=== PATIENT | female | born 1955 | race Caucasian/White ===

== ENCOUNTER 2017-10-27 21:42 | Inpatient (IN) | payer OTHER ==
[~2017-10-27] VITALS: Ht 165.1 cm; Wt 74.0 kg
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
--- NOTE | ~2017-10-27 | CON ---
[place], [place] REPORT OF CONSULTATION NAME: NICHOLAS BURDICK UNIT #: [id number] ROOM: [facility] DOCTOR: MICHELET CHAPARRO MD BIRTHDATE: [birth year] DOS: 10/29/2017 PSYCHIATRIC CONSULTATION CHIEF COMPLAINT: "Oh, I will never do that again." HISTORY OF PRESENT ILLNESS: This is a 62-year-old white female who was admitted to ICU following an intentional drug overdose on Valium. The patient reports ongoing family discord and states that her entire family is extremely dysfunctional. She moved from the [facility] to [place], in order to get away from them. Unfortunately, some of the drama followed her per her report, causing her to become increasingly depressed and agitated. She impulsively took the Valium not realizing how serious of an overdose it would be, now that she has been extubated and has had a chance to think about it, she convincingly has denied suicidal thoughts. She reports that her plan is to move with her daughter out of the entire area. She does have a very good relationship with José Luis Victor, a counselor at the [facility]. Kendra Mcconnellpton has already been in this morning to reevaluate and has told nurses that she does not feel that the patient is actively suicidal. This morning with me, she expresses reasonable remorse for her actions and does voice positive plans for the future. She is glad that she did not hurt herself any further than what she did, is anxious to leave the hospital and move her belongings far out of this area, so that she can avoid family discord. She reports good sleep and appetite leading up to this event and denied any neurovegetative symptoms prior to her impulsive suicide attempt. The patient denies any homicidal thoughts, any self-injurious thoughts. There is no gross psychosis and no robert present. IMPRESSION: Major depression, recurrent and borderline personality disorder. My sense after talking to her this morning is that she is not actively lethal. This was an impulsive act more because of personality issues than a major depressive episode. I am comfortable with her being discharged today. She does have followup already set with José Luis Victor at the [facility]. MICHELET CHAPARRO MD CM:CONSTR:REPORT OF CONSULTATION 1033 11/06/17 0928 interface
--- NOTE | ~2017-10-27 | PR ---
[place], [place] PROGRESS NOTE NAME: NICHOLAS BURDICK UNIT #: [id number] ROOM: [facility] DOCTOR: NADEEM VARELA MD,DYLAN BIRTHDATE: [birth year] DOS: 10/29/2017 PULMONARY PROGRESS NOTE SUBJECTIVE: The patient remains liberated from mechanical ventilator, noted fully awake, alert, oriented. This morning at the time of the assessment, she did not report any symptoms of coughing, sputum expectoration, or any chest pain. Denies symptoms of hemoptysis. OBJECTIVE: VITAL SIGNS: Normal temperature, respiratory rate 20, heart rate 74, blood pressure 111/46. Pulse oxygen saturation noted on room air 96% saturation. HEENT: Head was atraumatic. Eyes nonicterus. NECK: Supple. CARDIOVASCULAR: S1, S2 is audible. LUNGS: Without any wheeze or crackles this morning. ABDOMEN: Soft, nontender. Bowel sounds present. EXTREMITIES: Without any acute edema. IMPRESSION: 1. The patient is with stable respiratory status noted at the present time, with acute respiratory failure related to drug overdose with Valium. 2. History of chronic nicotine abuse. PLAN OF TREATMENT: No changes in the plan of management at this time. Continue current replacement patches, bronchodilators, DVT prophylaxis, and other. The patient has been assessed by the psychiatrist, Dr. Almanzar today for further recommendations. DYLAN SILVER MD CM:PNTRANS 1136 [id number] DYLAN VARELA MD 10/29/17 1337 interface
[~2017-10-27 21:42] MED LIST: 'carisoprodol350 MG; ABILIFY5 MG; ALAVERT10 M1 PO; ALLERGY RELIEF10 M1 PO; AMOXICILLIN500 MG PO; AUGMENTIN 875 M1 TAB PO; BACLOFEN10 MG PO; BACTRIM DS 8001 TA1 PO; CALAN SR240 MG PO; CIPRO500 MG PO; CLEOCIN HCL150 MG PO; CLINDAMYCIN HC300 MG PO; CYMBALTA60 M1 PO; DAILY MULTI-VIT1 TA2 PO; DIAZEPAM2 MG PO; HYDROCODONE BIT1 T11 PO; IMITREX6 MG/0.51 SC; LANSOPRAZOLE30 MG; LEVAQUIN750 MG PO; LIORESAL10 MG PO; LOMOTIL 0.025 M1 TA1 PO; LORATADINE10 M1; MEDROL DOSEPAK4 MG PO; MOTRIN400 MG PO; MULTIPLE VITAMI1 T16 PO; NEURONTIN100 MG PO; NKHM; OXYCODONE W/APA1 TAB; PERCOCET 325 MG1 TA2 PO; PERCOCET 325 MG1 TAB PO; PRILOSEC20 MG PO; PROAIR HFA0.09 MG/AC INH; SUMATRIPTA6 MG/0.51 SC; SYMBICORT1 AE1 INH; TIGAN PO; TRIMETHOBENZAM300 MG; ULTRAM50 MG PO; VALIUM10 MG PO; VICODIN ES 7501 TAB PO; ZITHROMAX Z PA250 MG PO; ZOFRAN ODT4 MG SL; ZOFRAN8 MG PO; ZOLOFT50 MG PO; ZYPREXA7.5 MG PO
[2017-10-27 22:04] VITALS: BP 160/85
[2017-10-27 22:05] LABS: BASO # 0.1 10*3/uL (0.0-0.1); BASO % 0.7 % (0.0-1.0); EOS # 0.2 10*3/uL (0.0-0.4); EOS % 2.8 % (1.0-4.0); HEMATOCRIT 45.2 % (37.0-47.0); HEMOGLOBIN 14.2 g/dl (12.0-16.0); LYMPH # 2.6 10*3/uL (1.3-4.4); LYMPH % 35.2 % (27.0-41.0); MEAN CELL VOLUME 87.8 fl (81.0-99.0); MEAN CORPUSCULAR HGB 27.6 pg (27.0-31.0); MEAN CORPUSCULAR HGB CONC 31.4 g/dl (33.0-37.0); MEAN PLATELET VOLUME 11.6 fl (9.6-12.3); MONO # 0.6 10*3/uL (0.1-1.0); MONO % 7.7 % (3.0-9.0); NEUT # 3.9 10*3/uL (2.3-7.9); NEUT % 53.2 % (47.0-73.0); PLATELET COUNT AUTOMATED 180 10*3/uL (130-400); RED BLOOD COUNT 5.15 10*6/uL (4.10-5.10); RED CELL DISTRI WIDTH 13.7 % (0-14.5); WHITE BLOOD COUNT 7.4 10*3/uL (4.8-10.8)
[2017-10-27 22:44] LABS: ALBUMIN 3.4 gm/dl (3.1-4.5); ALKALINE PHOSPHATASE 87 U/L (45-117); BUN 5 mg/dl (7-24); CHLORIDE 108 mmol/L (98-107); CPK 26 U/L (26-192); CREATININE 0.56 mg/dL (0.55-1.02); POTASSIUM 3.3 mmol/L (3.5-5.1); SGOT/AST 39 IU/L (3-35); SGPT/ALT 35 U/L (12-78); SODIUM 137 mmol/L (136-145); TOTAL PROTEIN 7.2 gm/dL (6.4-8.2)
[2017-10-27 22:45] LABS: ACETAMINOPHEN (TYLENOL) < 2.0 ug/ml (10-30); CKMB 0.9 ng/ml (0.5-3.6); ETHYL ALCOHOL < 3.0 mg/dl (<3)
[2017-10-27 22:46] LABS: TROPONIN I < 0.015 ng/ml (<0.045)
[2017-10-27 23:18] VITALS: BP 158/71
[2017-10-28] VITALS (7 sets, daily range): BP systolic 111–138; BP diastolic 65–83
[2017-10-28 01:56] LABS: BILIRUBIN NEGATIVE (NEGATIVE); BLOOD NEGATIVE (NEGATIVE); CLARITY CLEAR (CLEAR); COLOR YELLOW (YELLOW); GLUCOSE NEGATIVE (NEGATIVE); KETONE NEGATIVE (NEGATIVE); LEUKO ESTERASE TRACE (NEGATIVE); NITRITE NEGATIVE (NEGATIVE); PH 5.5 (5.0-9.0); SPECIFIC GRAVITY <= 1.005 (1.005-1.030); UROBILINOGEN 0.2 E.U./dl (0.2-1.0)
[2017-10-28 02:05] LABS: URINE AMPHETAMINES < 1000 (1000ng/ml); URINE BARBITURATES < 200 (200ng/ml); URINE BENZODIAZEPINES > 200 (200ng/ml); URINE CANNABINOIDS (THC) < 50 (50ng/ml); URINE COCAINE < 300 (300ng/ml); URINE METHADONE < 300 (300ng/ml); URINE OPIATES < 300 (300ng/ml); URINE PHENCYCLIDINE < 25 (25ng/ml)
[2017-10-28 02:13] LABS: ABG BASE EXCESS -0.3 mmol/L (-2.0-2.0); ABG O2 SATURATION 97.8 % (95-97); ARTERIAL BLOOD GAS PCO2 49.8 mmHg (35-45); ARTERIAL BLOOD GAS PH 7.333 (7.35-7.45)
[2017-10-28 06:08] LABS: BASO % 0.5 % (0.0-1.0); EOS # 0.1 10*3/uL (0.0-0.4); EOS % 1.3 % (1.0-4.0); HEMATOCRIT 46.7 % (37.0-47.0); HEMOGLOBIN 14.2 g/dl (12.0-16.0); LYMPH % 25.8 % (27.0-41.0); MEAN CELL VOLUME 89.1 fl (81.0-99.0); MEAN CORPUSCULAR HGB 27.1 pg (27.0-31.0); MEAN CORPUSCULAR HGB CONC 30.4 g/dl (33.0-37.0); MEAN PLATELET VOLUME 12.7 fl (9.6-12.3); MONO # 0.6 10*3/uL (0.1-1.0); MONO % 7.5 % (3.0-9.0); NEUT # 4.9 10*3/uL (2.3-7.9); NEUT % 64.5 % (47.0-73.0); PLATELET COUNT AUTOMATED 163 10*3/uL (130-400); RED BLOOD COUNT 5.24 10*6/uL (4.10-5.10); RED CELL DISTRI WIDTH 13.6 % (0-14.5); WHITE BLOOD COUNT 7.6 10*3/uL (4.8-10.8)
[2017-10-28 06:29] LABS: ACT PARTIAL THROMBO TIME 23.8 SECONDS (20.8-31.5)
[2017-10-28 06:31] LABS: ALBUMIN 3.4 gm/dl (3.1-4.5); BUN 6 mg/dl (7-24); CHLORIDE 110 mmol/L (98-107); POTASSIUM 4.1 mmol/L (3.5-5.1); SGOT/AST 32 IU/L (3-35); SODIUM 145 mmol/L (136-145)
[2017-10-28 06:39] LABS: ALKALINE PHOSPHATASE 86 U/L (45-117); CHOLESTEROL 52 mg/dL (<200); CREATININE 0.57 mg/dL (0.55-1.02); FREE T4 1.26 ng/dl (0.76-1.46); HDL CHOLESTEROL 11 mg/dl (40-60); LDL CHOLESTEROL 17 mg/dL (9-159); PHOSPHOROUS 3.1 mg/dL (2.5-4.9); SGPT/ALT 35 U/L (12-78); THYROID STIM HORMONE (HS) 0.733 uIU/ml (0.358-4.75); TOTAL PROTEIN 7.3 gm/dL (6.4-8.2); TRIGLYCERIDES 122 mg/dl (<150); VLDL CHOLESTEROL 24 mg/dL (6-40)
[2017-10-28 07:37] LABS: VITAMIN D, 25-HYDROXY 22.8 ng/mL (30-100)
[2017-10-28 09:35] LABS: ABG BASE EXCESS 1.1 mmol/L (-2.0-2.0); ABG HCO3 25.8 mmol/l (22-26); ABG O2 SATURATION 97.2 % (95-97); ARTERIAL BLOOD GAS PCO2 41.2 mmHg (35-45); ARTERIAL BLOOD GAS PH 7.407 (7.35-7.45)
[2017-10-28] MEDS ORDERED: ANORO ELLIPTA1 EACH INH (11:23)
[2017-10-28] MEDS ORDERED: VALIUM10 MG PO (11:23)
[2017-10-28] MEDS ORDERED: ZOLOFT100 MG PO (11:24)
[2017-10-28] MEDS ORDERED: LAMICTAL100 MG PO (11:25)
[2017-10-28] MEDS ORDERED: NEURONTIN300 MG PO (11:33)
[2017-10-28] MEDS ORDERED: KEPPRA250 MG PO (11:33)
[2017-10-28] MEDS ORDERED: VERAPAMIL HCL240 MG PO (11:34)
[2017-10-28] MEDS ORDERED: ZYRTEC10 MG PO (11:36)
[2017-10-28] MEDS ORDERED: PRILOSEC20 M1 PO (11:36)
[2017-10-29] VITALS: BP 106/61
[2017-10-29 04:00] VITALS: BP 110/56
[2017-10-29 06:03] LABS: ALBUMIN 2.9 gm/dl (3.1-4.5); ALKALINE PHOSPHATASE 83 U/L (45-117); BUN 3 mg/dl (7-24); CHLORIDE 115 mmol/L (98-107); CREATININE 0.56 mg/dL (0.55-1.02); POTASSIUM 3.7 mmol/L (3.5-5.1); SGOT/AST 24 IU/L (3-35); SGPT/ALT 28 U/L (12-78); SODIUM 147 mmol/L (136-145); TOTAL PROTEIN 6.4 gm/dL (6.4-8.2)
[2017-10-29 06:14] LABS: BASO % 0.5 % (0.0-1.0); EOS # 0.2 10*3/uL (0.0-0.4); EOS % 2.3 % (1.0-4.0); HEMATOCRIT 42.6 % (37.0-47.0); HEMOGLOBIN 12.8 g/dl (12.0-16.0); LYMPH # 1.9 10*3/uL (1.3-4.4); LYMPH % 29.1 % (27.0-41.0); MEAN CELL VOLUME 90.4 fl (81.0-99.0); MEAN CORPUSCULAR HGB 27.2 pg (27.0-31.0); MEAN PLATELET VOLUME 12.3 fl (9.6-12.3); MONO # 0.5 10*3/uL (0.1-1.0); NEUT # 3.9 10*3/uL (2.3-7.9); NEUT % 60.8 % (47.0-73.0); PLATELET COUNT AUTOMATED 157 10*3/uL (130-400); RED BLOOD COUNT 4.71 10*6/uL (4.10-5.10); RED CELL DISTRI WIDTH 13.9 % (0-14.5); WHITE BLOOD COUNT 6.5 10*3/uL (4.8-10.8)
[2017-10-29 08:00] VITALS: BP 111/46
[2017-10-29] MEDS ORDERED: VALIUM10 MG PO (12:13)
== END 2017-10-29 12:34 | disposition home or self-care (01) | DRG 917 ==
LOC: ED 21:42 → ICCU 22:22 → EDHOLD 22:22 → ICCU 22:33
PROVIDERS: Emergency Medicine; Family Medicine; Internal Medicine; Internal Medicine Critical Care Medicine
PROC: 0BH17EZ Insertion of Endotracheal Airway into Trachea, Via Natural or Artificial Opening (ICD-10-PCS; principal; 2017-10-27)
PROC: 5A1935Z Respiratory Ventilation, Less than 24 Consecutive Hours (ICD-10-PCS; 2017-10-27)
PROC: 05HY33Z Insertion of Infusion Device into Upper Vein, Percutaneous Approach (ICD-10-PCS; 2017-10-27)
DX: T42.4X2A Poisoning by benzodiazepines, intentional self-harm, initial encounter (principal); G93.41 Metabolic encephalopathy; J96.02 Acute respiratory failure with hypercapnia; F33.2 Major depressive disorder, recurrent severe without psychotic features; E87.2 Acidosis; E83.51 Hypocalcemia; R65.10 Systemic inflammatory response syndrome (SIRS) of non-infectious origin without acute organ dysfunction; J44.9 Chronic obstructive pulmonary disease, unspecified; F17.210 Nicotine dependence, cigarettes, uncomplicated; E87.6 Hypokalemia; R73.9 Hyperglycemia, unspecified; B18.2 Chronic viral hepatitis C; H65.21 Chronic serous otitis media, right ear; F60.3 Borderline personality disorder; G89.4 Chronic pain syndrome; F34.1 Dysthymic disorder; F41.9 Anxiety disorder, unspecified; K21.9 Gastro-esophageal reflux disease without esophagitis; Z90.710 Acquired absence of both cervix and uterus; Z85.43 Personal history of malignant neoplasm of ovary; Z86.11 Personal history of tuberculosis; Y92.89 Other specified places as the place of occurrence of the external cause; Z79.899 Other long term (current) drug therapy; Z80.8 Family history of malignant neoplasm of other organs or systems

== ENCOUNTER 2017-11-04 15:03 | Inpatient (IN) | payer OTHER ==
[~2017-11-04] VITALS: Ht 167.6 cm; Wt 81.6 kg
--- NOTE | ~2017-11-04 | CON ---
[place], [place] REPORT OF CONSULTATION NAME: NICHOLAS BRUNNER UNIT #: [id number] ROOM: 316 DOCTOR: RUBÉN FERRER ED.D) BIRTHDATE: [birth year] DOS: 11/06/2017 HISTORY OF PRESENT ILLNESS: Ms. Brunner is a 62-year-old female referred by Dr. Chaparro for competency evaluation. At the present time, this patient is on the [facility] at [facility]. She states she is . She does not work and is on SSI. At the present time, this patient does not have a family physician. Her medical history is pertinent for migraine headaches, history of IV heroin abuse, COPD, urinary tract infection and borderline personality disorder, hypertension and the tuberculosis. She was sent to the hospital after she overdosed on Valium at her apartment. This patient states that she smokes 2 packs of cigarettes per day, but does not drink any alcoholic beverages. She does smoke marijuana on occasion. Her medications include multivitamins, Prilosec, verapamil, ProAir, Vilanterol, Zyrtec, Neurontin, Lamictal and the Keppra. She states she has attempted suicide on several different occasions and was hospitalized in the past, but did not know the number of times she had been hospitalized. She does follow with José Luis Lakhani, nurse practitioner at [facility]. She also sees a therapist by the name of Myrna at the counseling center. She states that she will continue to follow with him once she is discharged. She was quite confused when she was admitted, but by the time I evaluated her, her confusion had cleared, most likely due to the fact that she had a resolving urinary tract infection. She states she was having difficulty urinating and had other symptoms of urinary tract infection including a positive urine screen. Regardless, she is clearly competent to make informed healthcare decisions at this time. Her confusion most likely was a short-term delirium secondary to her urinary tract infection. She has been treated by the staff at the [facility] for bipolar disorder and borderline personality disorder. DIAGNOSES: 1. Bipolar 1 disorder -- mixed. 2. Borderline personality disorder. RECOMMENDATIONS: 1. In my opinion, this patient is competent to make informed healthcare decisions. 2. The patient should follow up with the Counseling Center in [facility] when she is discharged from the hospital. Thank you very much for this consult. [place], [place] REPORT OF CONSULTATION NAME: NICHOLAS BRUNNER UNIT #: [id number] ROOM: [facility] DOCTOR: RUBÉN FERRER ED.D (CELENA) BIRTHDATE: [birth year] RUBÉN FERRER ED.D CM:CONSTR:REPORT OF CONSULTATION 1805 11/07/17 1410 interface MICHELET CHAPARRO MD
--- NOTE | ~2017-11-04 | DS ---
[place], [place] DISCHARGE SUMMARY NAME: NICHOLAS BURDICK UNIT #: [id number] ROOM: 316 DOCTOR: MICHELET CHAPARRO MD BIRTHDATE: [birth year] DOS: 11/10/2017 CHIEF COMPLAINT: "I don't remember trying to sign out, I do not remember you." HISTORY OF PRESENT ILLNESS: This is a 62-year-old white female who was recently admitted to ICU following an overdose of Valium. However, after being evaluated post-overdose by Kendra Lakhani and myself, she had come convey normal remorse and voiced positive plans for the future and wanted to be able to move out of her home and in with her daughter. Subsequently to leaving the hospital, she decompensated and was attempting to get in to [facility], but needed to be medically cleared in our Emergency Room. She did have a history of MRSA and hepatitis C. In the Emergency Room, the patient stated that she actively wanted to get help and was feeling overly depressed and overwhelmed with family drama. She endorsed multiple neurovegetative symptoms and continued to have fleeting suicidal thoughts. The option was given to her to be admitted to our psychiatric unit which she did agree to. She was admitted now to rule out organic factors to attempt to stabilize on medication, to return to the least restrictive environment. PAST MEDICAL HISTORY: Remarkable for benzodiazepine abuse, previous history of opiate abuse, COPD, chronic pain, GERD, hep C, ovarian cancer, tuberculosis, hypertension, major depression, recurrent migraine headaches and prediabetes. SOCIAL HISTORY: The patient does drink alcohol socially. She is a former IV heroin abuser. She does smoke marijuana daily and smokes 2 packs of cigarettes a day. ALLERGIES: She lists allergies to ACETAMINOPHEN. STRENGTHS: Good verbal skills and ambulatory. WEAKNESSES: Family dynamic issues, poor coping skills. SUMMARY OF THE HOSPITAL COURSE: The patient was admitted where she was started immediately on Cymbalta 30 mg at bedtime. This was augmented with Zyprexa 5 mg twice daily in order to improve the effectiveness of the Cymbalta as well as to aid sleep and curve her anxiety without utilizing an addictive agent. The Zyprexa was gradually increased to its maximum of 5 mg in the morning and 10 mg at night while Cymbalta was increased to 30 mg in the morning and 60 mg at night without any incident. Screening examination showed her to have a vitamin D level subtherapeutic at 23.6, so vitamin D 50,000 international units weekly was added. The patient continued to complain that her family dynamic issues made such that she did not want to return with any of them. She had a hard time cooking, cleaning and doing all that for herself, so it was decided that a less than 30-day rehab option was in her best interest with the possibility of this turning into a permanent placement. The patient had improved sufficiently by November 10 to return to [place] or to be admitted to [facility]. MENTAL STATUS AT DISCHARGE: She is alert and oriented with time gaps. [place], [place] DISCHARGE SUMMARY NAME: NICHOLAS BURDICK UNIT #: [id number] ROOM: [facility] DOCTOR: MICHELET CHAPARRO MD BIRTHDATE: [birth year] does seem to be trending toward euthymia. Affect is more appropriate. She no longer endorses suicidal thoughts, homicidal thoughts or any self-injurious thoughts. There is no robert, hypomania or psychosis. Memory for short term events has gaps, otherwise she is intact. FINAL DIAGNOSES: Major depression, recurrent, severe; dysthymic disorder; polysubstance dependence and borderline personality disorder. PLAN: The patient is to be admitted to [facility]. All of her prescriptions have been printed and will be sent with her. She is medically and psychiatrically stable. Her biopsychosocial needs are adequately being met by the facility at large. MICHELET CHAPARRO MD CM:DISCHARG 0912 [id number] MICHELET CHAPARRO MD 11/10/17 1800 interface
--- NOTE | ~2017-11-04 | PR ---
[place], [place] PROGRESS NOTE NAME: NICHOLAS BURDICK UNIT #: [id number] ROOM: 316 DOCTOR: MICHELET CHAPARRO MD BIRTHDATE: [birth year] DOS: 11/08/2017 INTERVAL NOTE CHIEF COMPLAINT: "I am still paranoid and I am afraid what's going to happen to me." SUMMARY OF THE VISIT: The patient was interviewed in the group therapy room. She requested to talk to me privately because she does state that she is still paranoid. She is not sleeping well. She had questions about where she will go post-discharge and we discussed at length what [facility] is like. She nodded in approval stating that that did some good to her. She also on a positive note reports that she does feel like the patch is already helping her cognition. Whether this is true or placebo effect is uncertain. MENTAL STATUS: She is alert and oriented with gaps. Mood does seem to be trending towards euthymia. Affect is more appropriate. There is no robert or hypomania. She still endorses positive hallucinations. Memory has gaps. PLAN: I will increase Zyprexa to 5 mg in the morning and 10 mg at night, attempting to aid sleep and reduce psychotic symptomatology. Engage in individual and lou milieu activity, returning to the least restrictive environment when stable. MICHELET CHAPARRO MD CM:PNTRANS 1132 08 MICHELET CHAPARRO MD 11/08/172106 interface
--- NOTE | ~2017-11-04 | WRIGHTHP ---
[place], [place] PATIENT HISTORY AND PHYSICAL EXAM NAME: NICHOLAS BURDICK UNIT #: [id number] ROOM: 316 DOCTOR: MICHELET CHAPARRO MD BIRTHDATE: [birth year] DOS: 11/05/2017 INITIAL PSYCHIATRIC EVALUATION CHIEF COMPLAINT: "I don't remember trying to sign out, I don't remember you." HISTORY OF PRESENT ILLNESS: This is a 62-year-old white female who recently overdosed on Valium and was admitted to ICU. However, after being evaluated post-overdose by Kendra Lakhani and myself, she had conveyed normal remorse and voiced positive plans for the future and wanted to be able to move in with her daughter. Subsequently, she decompensated at her daughters and was attempting to get into [facility], but needed to be cleared by our Emergency Room first due to a history of MRSA and hepatitis C. In the Emergency Room, the patient did state that she actively wanted to get help that she had been feeling overly depressed and overwhelmed because of family drama. She reported not sleeping well with difficulty falling asleep, sleep continuity disturbance, forensic specialist awakening, anergia, anhedonia, hopeless, helpless feelings, crying spells, and inability to cope. She continues to have fleeting suicidal thoughts. Of note, this morning, she also endorses the possibility of hearing voices and believes that people are talking about her. She convincingly reports that she does not remember me and even after I told her my name, she asked me if I was a doctor. There seems to be some cognitive issues here as well. She is admitted now to rule out any organic factors to stabilize on medication, to then return to the least restrictive environment. PAST MEDICAL HISTORY: Remarkable for benzodiazepine abuse, COPD, chronic pain syndrome, GERD, hep C, ovarian cancer, tuberculosis, hypertension, major depression, migraine headaches, and prediabetes. SOCIAL HISTORY: The patient socially does not drink alcohol. 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 She does smoke 2 packs of cigarettes a day and smokes marijuana frequently. ALLERGIES: She lists allergies to ACETAMINOPHEN. She denies any previous psychiatric hospitalizations and denies any previous suicide attempts, other than the recent one. STRENGTHS: Good verbal skills, ambulatory. WEAKNESSES: Significant family dynamic issues, poor coping skills. MENTAL STATUS: She is alert and oriented with time gaps. Mood is overwhelmingly depressed. Affect is flat, blunted with a constricted range. She endorses multiple neurovegetative symptoms including fleeting suicidal thoughts. She also endorses ideas of reference and feels people are talking about her. She does have short term memory issues as well. DIAGNOSES: Major depression, recurrent, severe; dysthymic disorder; polysubstance dependence; and borderline personality disorder. [place], [place] PATIENT HISTORY AND PHYSICAL EXAM NAME: NICHOLAS BURDCIK UNIT #: [id number] ROOM: [facility] DOCTOR: MICHELET CHAPARRO MD BIRTHDATE: [birth year] PLAN: I have already started her on Cymbalta 30 mg at bedtime, which I will increase now to 60 mg at bedtime. I will augment with Zyprexa 5 mg twice daily, not only to make the antidepressant work better, but also to combat the paranoid delusions. I will check a Neurontin level in the a.m. to make certain it is therapeutic. Screening exam show her vitamin D level to be subtherapeutic at 23.6, so I will add vitamin D 50,000 international units weekly. We will engage in individual and lou milieu activity, then determining when psychiatrically stable at the least restrictive environment to discharge to. MICHELET CHAPARRO MD CM:HISPHYS:PATIENT HISTORY AND PHYSICAL EXAMINATION [id number] MICHELET CHAPARRO MD 11/05/17 1128 interface
--- NOTE | ~2017-11-04 | PR ---
[place], [place] PROGRESS NOTE NAME: NICHOLAS BURDICK UNIT #: [id number] ROOM: 316 DOCTOR: MICHELET CHAPARRO MD BIRTHDATE: [birth year] DOS: 11/07/2017 CHIEF COMPLAINT: "I think that little patch, they put on is already helping me." SUMMARY OF THE VISIT: The patient was interviewed in the dining area, she sat to eat her breakfast, but engaged instead in conversation with us. She reports that she is feeling better. She does seem to be more goal directed in her conversation than she had been over the weekend and was able to converse more readily, even being somewhat spontaneous in bringing up topics. She is hopeful that she can live here and states that her brother is working on finding her a living situation, where she will not have to be totally alone. food and nutrition services assistant reports that he is looking into a personal chcf and/or group homes or assisted living. MENTAL STATUS: She is alert and oriented with time gaps. She is somewhat fragmented in her thinking, but better than she had been several days ago. She does also appear to be more euthymic and her mood does seem to be improving. I see no hypomania or robert. Likewise, I see no gross psychotic symptoms. Memory for short term events continues to be problematic. Otherwise, she is intact. PLAN: I will go ahead and increase Exelon patch from 4.6 to 9.5 mg a day. Continue to support and monitor, engage in individual and lou milieu activity with the plan to discharge then when psychiatrically stable. MICHELET CHAPARRO MD CM:PNTRANS [id number] MICHELET CHAPARRO MD 11/07/17 0923 interface
--- NOTE | ~2017-11-04 | PN ---
[place], [place] PROGRESS NOTE NAME: NICHOLAS BURDICK UNIT #: [id number] ROOM: 316 DOCTOR: MICHELET CHAPARRO MD BIRTHDATE: [birth year] DATE: 11/09/17 ADDENDUM 11/16/17 2:06 P.M.: Above note reviewed. Agree with observations, recommendations, and overall treatment plan. MICHELET CHAPARRO MD CM:PNTRANS 1406 1413 MICHELET CHAPARRO MD 11/16/17 1413 DEANA QUIROZ MIS.LLR
--- NOTE | ~2017-11-04 | PR ---
[place], [place] PROGRESS NOTE NAME: NICHOLAS BURDICK UNIT #: [id number] ROOM: 316 DOCTOR: MICHELET CHAPARRO MD BIRTHDATE: [birth year] DOS: 11/06/2017 INTERVAL NOTE CHIEF COMPLAINT: "Who are you again." SUMMARY OF THE VISIT: The patient was interviewed in the dining area. She continues to be very perplexed and bewildered and did not remember my name or who I was. She did not even know that I was her doctor. She remains depressed. She remains rather flat and blunted and reports that she is in considerable pain. She also discussed at length her family dynamic issues, which are very problematic. MENTAL STATUS: She is alert and oriented to person, possibly place, not time. Mood does seem to be still rather depressed. Affect is flat, blunted, and constricted. There is no robert or hypomania. There is no gross psychosis. Short term memory remains poor. PLAN: I will increase her Cymbalta to 30 mg in the morning and 60 mg at bedtime and add Exelon patch to try to improve her cognitive status. We will continue to engage in individual and lou milieu activities, returning to the least restrictive environment when psychiatrically stable. MICHELET CHAPARRO MD CM:PNTRANS 0925 35 MICHELET CHAPARRO MD 11/06/171934 interface
[~2017-11-04 15:03] MED LIST changes: +ANORO ELLIPTA1 EACH INH; +KEPPRA250 MG PO; +LAMICTAL100 MG PO; +NEURONTIN300 MG PO; +PRILOSEC20 M1 PO; +VERAPAMIL HCL240 MG PO; +ZOLOFT100 MG PO; +ZYRTEC10 MG PO
[2017-11-04 15:09] VITALS: BP 146/73
[2017-11-04 16:03] LABS: BASO % 0.5 % (0.0-1.0); EOS # 0.2 10*3/uL (0.0-0.4); EOS % 2.1 % (1.0-4.0); HEMATOCRIT 47.6 % (37.0-47.0); HEMOGLOBIN 15.1 g/dl (12.0-16.0); LYMPH # 2.1 10*3/uL (1.3-4.4); LYMPH % 27.7 % (27.0-41.0); MEAN CELL VOLUME 87.2 fl (81.0-99.0); MEAN CORPUSCULAR HGB 27.7 pg (27.0-31.0); MEAN CORPUSCULAR HGB CONC 31.7 g/dl (33.0-37.0); MEAN PLATELET VOLUME 10.6 fl (9.6-12.3); MONO # 0.5 10*3/uL (0.1-1.0); MONO % 7.2 % (3.0-9.0); NEUT # 4.6 10*3/uL (2.3-7.9); NEUT % 62.1 % (47.0-73.0); PLATELET COUNT AUTOMATED 199 10*3/uL (130-400); RED BLOOD COUNT 5.46 10*6/uL (4.10-5.10); RED CELL DISTRI WIDTH 13.9 % (0-14.5); WHITE BLOOD COUNT 7.5 10*3/uL (4.8-10.8)
[2017-11-04 16:04] LABS: BILIRUBIN NEGATIVE (NEGATIVE); BLOOD TRACE-INTACT (NEGATIVE); CLARITY SL CLOUDY (CLEAR); COLOR YELLOW (YELLOW); GLUCOSE NEGATIVE (NEGATIVE); KETONE NEGATIVE (NEGATIVE); NITRITE POSITIVE (NEGATIVE)
[2017-11-04 16:07] LABS: LEUKO ESTERASE 3+ (NEGATIVE)
[2017-11-04 16:09] LABS: URINE AMPHETAMINES < 1000 (1000ng/ml); URINE BARBITURATES < 200 (200ng/ml); URINE BENZODIAZEPINES > 200 (200ng/ml); URINE CANNABINOIDS (THC) > 50 (50ng/ml); URINE COCAINE < 300 (300ng/ml); URINE METHADONE < 300 (300ng/ml); URINE OPIATES < 300 (300ng/ml)
[2017-11-04 16:10] LABS: URINE PHENCYCLIDINE < 25 (25ng/ml)
[2017-11-04 16:12] LABS: BACTERIA 4+
[2017-11-04 16:13] LABS: EPITHELIAL CELLS 21-30
[2017-11-04 16:17] LABS: ACETAMINOPHEN (TYLENOL) < 2.0 ug/ml (10-30); ALKALINE PHOSPHATASE 101 U/L (45-117); BUN 6 mg/dl (7-24); CHLORIDE 108 mmol/L (98-107); CREATININE 0.69 mg/dL (0.55-1.02); ETHYL ALCOHOL < 3.0 mg/dl (<3); SGOT/AST 50 IU/L (3-35); SGPT/ALT 39 U/L (12-78); SODIUM 144 mmol/L (136-145); TOTAL PROTEIN 8.3 gm/dL (6.4-8.2)
[2017-11-04 18:00] VITALS: BP 128/78
[2017-11-04 19:51] VITALS: BP 149/72
[2017-11-04 22:00] VITALS: BP 111/75
[2017-11-05 05:58] LABS: ALBUMIN 3.4 gm/dl (3.1-4.5); ALKALINE PHOSPHATASE 94 U/L (45-117); BUN 9 mg/dl (7-24); CHLORIDE 108 mmol/L (98-107); CREATININE 0.56 mg/dL (0.55-1.02); HDL CHOLESTEROL 12 mg/dl (40-60); POTASSIUM 3.7 mmol/L (3.5-5.1); SGOT/AST 44 IU/L (3-35); SGPT/ALT 36 U/L (12-78); SODIUM 143 mmol/L (136-145); TOTAL PROTEIN 7.2 gm/dL (6.4-8.2); TRIGLYCERIDES 127 mg/dl (<150); VLDL CHOLESTEROL 25 mg/dL (6-40)
[2017-11-05 06:01] LABS: CHOLESTEROL < 50 mg/dL (<200); LDL CHOLESTEROL 13 mg/dL (9-159)
[2017-11-05 06:06] LABS: THYROID STIM HORMONE (HS) 0.809 uIU/ml (0.358-4.75)
[2017-11-05 07:22] LABS: VITAMIN D, 25-HYDROXY 23.6 ng/mL (30-100)
[2017-11-05 07:31] VITALS: BP 126/70
[2017-11-05 19:12] VITALS: BP 110/67
[2017-11-06 08:00] VITALS: BP 113/58
[2017-11-06 19:46] VITALS: BP 112/64
[2017-11-07 07:36] VITALS: BP 115/62
[2017-11-07 17:09] LABS: NEURONTIN (GABAPENTIN) 10.8 ug/mL (4.0-16.0)
[2017-11-07 20:09] VITALS: BP 125/64
[2017-11-08 07:40] VITALS: BP 133/71
[2017-11-08 19:07] VITALS: BP 125/79
[2017-11-09 07:54] VITALS: BP 117/72
[2017-11-09 19:38] VITALS: BP 131/61
[2017-11-10 07:45] VITALS: BP 117/64
[2017-11-10] MEDS ORDERED: DULOXETINE HCL60 MG PO (09:05)
[2017-11-10] MEDS ORDERED: Vitamin D PO (09:05)
[2017-11-10] MEDS ORDERED: RIVASTIGMINE1 EAC1 T (09:05)
[2017-11-10] MEDS ORDERED: OLANZAPINE5 MG PO (09:05)
[2017-11-10] MEDS ORDERED: OLANZAPINE10 MG PO (09:05)
[2017-11-10] MEDS ORDERED: DULOXETINE HCL30 MG PO (09:05)
== END 2017-11-10 15:37 | disposition other institution (70) | DRG 885 ==
LOC: ED 15:03 → 3N 20:30
PROVIDERS: Emergency Medicine; Psychiatry & Neurology Psychiatry
DX: F31.4 Bipolar disorder, current episode depressed, severe, without psychotic features (principal); E87.8 Other disorders of electrolyte and fluid balance, not elsewhere classified; R45.851 Suicidal ideations; F19.20 Other psychoactive substance dependence, uncomplicated; N39.0 Urinary tract infection, site not specified; R56.9 Unspecified convulsions; F34.1 Dysthymic disorder; F60.3 Borderline personality disorder; F12.10 Cannabis abuse, uncomplicated; R73.9 Hyperglycemia, unspecified; R74.0 Nonspecific elevation of levels of transaminase and lactic acid dehydrogenase [LDH]; Z71.6 Tobacco abuse counseling; B19.20 Unspecified viral hepatitis C without hepatic coma; G43.909 Migraine, unspecified, not intractable, without status migrainosus; Z72.0 Tobacco use; K21.9 Gastro-esophageal reflux disease without esophagitis; G89.4 Chronic pain syndrome; I10 Essential (primary) hypertension; J44.9 Chronic obstructive pulmonary disease, unspecified; F41.9 Anxiety disorder, unspecified; R73.03 Prediabetes; B18.2 Chronic viral hepatitis C; F13.10 Sedative, hypnotic or anxiolytic abuse, uncomplicated; G62.9 Polyneuropathy, unspecified; Z85.43 Personal history of malignant neoplasm of ovary; Z86.11 Personal history of tuberculosis; Z88.8 Allergy status to other drugs, medicaments and biological substances; Z87.440 Personal history of urinary (tract) infections; Z79.899 Other long term (current) drug therapy; Z90.710 Acquired absence of both cervix and uterus; Z80.8 Family history of malignant neoplasm of other organs or systems

== ENCOUNTER 2017-12-14 19:41 | Emergency (ER) | payer OTHER ==
[~2017-12-14] VITALS: Ht 162.5 cm; Wt 73.0 kg
--- NOTE | ~2017-12-14 | EKG ---
[place], [place] ELECTROCARDIOGRAM REPORT NAME: NICHOLAS BURDICK UNIT #: [id number] ROOM: DOCTOR: EPIPHANY DRAFT REPORT BIRTHDATE: [birth year] [facility] Test Date: 2017-12-14 Test Time: 22:49:44 Pat Name: NICHOLAS BURDICK Department: ER Room: Gender: F Admission Liaison: Dmitry Bedolla : 1955 Requested By: JUSTA BUTLER Order Number: [id number] Reading MD: Uday Aguiar MD Measurements Intervals [place] Rate: 74 P: 71 VA: 140 QRS: 65 QRSD: 85 T: 48 QT: 397 QTc: 441 Interpretive Statements Sinus rhythm Normal ECG Electronically Signed On 12-16-2017 11:39:54 PDT by Uday Aguiar MD CM:EKGRPT:ELECTROCARDIOGRAM REPORT [id number] JUSTA MCCLOUD DRAFT REPORT JUSTA BUTLER DO
--- NOTE | ~2017-12-14 | EKG ---
[place], [place] ELECTROCARDIOGRAM REPORT NAME: NICHOLAS BURDICK UNIT #: [id number] ROOM: DOCTOR: EPIPHANY DRAFT REPORT BIRTHDATE: [birth year] [facility] Test Date: 2017-12-14 Test Time: 19:47:12 Pat Name: NICHOLAS BURDICK Department: ER Room: Gender: F Dispensing Audiologist: Gwen Jacinto : 1955 Requested By: JUSTA BUTLER Order Number: [id number] Reading MD: Uday Aguiar MD Measurements Intervals [place] Rate: 87 P: 77 W[place]: 135 QRS: 74 QRSD: 88 T: 56 QT: 357 QTc: 430 Interpretive Statements Sinus rhythm Probable left atrial enlargement Normal ECG Electronically Signed On 12-16-2017 11:39:32 PDT by Uday Aguiar MD CM:EKGRPT:ELECTROCARDIOGRAM REPORT [id number] JUSTA MCCLOUD DRAFT REPORT JUSTA BUTLER DO
[~2017-12-14 19:41] MED LIST changes: +DULOXETINE HCL30 MG PO; +DULOXETINE HCL60 MG PO; +OLANZAPINE10 MG PO; +OLANZAPINE5 MG PO; +RIVASTIGMINE1 EAC1 T; +Vitamin D PO
[2017-12-14 20:09] LABS: BASO % 0.4 % (0.0-1.0); EOS # 0.2 10*3/uL (0.0-0.4); HEMATOCRIT 45.2 % (37.0-47.0); HEMOGLOBIN 14.4 g/dl (12.0-16.0); LYMPH # 3.3 10*3/uL (1.3-4.4); LYMPH % 34.2 % (27.0-41.0); MEAN CELL VOLUME 87.6 fl (81.0-99.0); MEAN CORPUSCULAR HGB 27.9 pg (27.0-31.0); MEAN CORPUSCULAR HGB CONC 31.9 g/dl (33.0-37.0); MEAN PLATELET VOLUME 11.6 fl (9.6-12.3); MONO # 0.8 10*3/uL (0.1-1.0); MONO % 8.7 % (3.0-9.0); NEUT # 5.2 10*3/uL (2.3-7.9); NEUT % 54.4 % (47.0-73.0); PLATELET COUNT AUTOMATED 185 10*3/uL (130-400); RED BLOOD COUNT 5.16 10*6/uL (4.10-5.10); RED CELL DISTRI WIDTH 13.9 % (0-14.5); WHITE BLOOD COUNT 9.6 10*3/uL (4.8-10.8)
[2017-12-14 20:18] LABS: ACT PARTIAL THROMBO TIME 21.9 SECONDS (20.8-31.5)
[2017-12-14 20:25] LABS: ALBUMIN 4.2 gm/dl (3.1-4.5); ALKALINE PHOSPHATASE 107 U/L (45-117); BUN 12 mg/dl (7-24); CHLORIDE 105 mmol/L (98-107); CREATININE 0.57 mg/dL (0.55-1.02); POTASSIUM 3.5 mmol/L (3.5-5.1); SGOT/AST 52 IU/L (3-35); SGPT/ALT 58 U/L (12-78); SODIUM 141 mmol/L (136-145); TOTAL PROTEIN 8.5 gm/dL (6.4-8.2)
[2017-12-14 20:26] LABS: TROPONIN I < 0.015 ng/ml (<0.045)
== END 2017-12-15 01:09 | disposition short-term general hospital (02) ==
LOC: ED 19:41
PROVIDERS: Student in an Organized Health Care Education/Training Program
DX: I63.9 Cerebral infarction, unspecified (principal); J44.9 Chronic obstructive pulmonary disease, unspecified; K21.9 Gastro-esophageal reflux disease without esophagitis; I10 Essential (primary) hypertension; G43.909 Migraine, unspecified, not intractable, without status migrainosus; G62.9 Polyneuropathy, unspecified; R73.03 Prediabetes; F17.200 Nicotine dependence, unspecified, uncomplicated; Z88.6 Allergy status to analgesic agent; Z79.899 Other long term (current) drug therapy

== ENCOUNTER 2018-01-18 17:00 | Inpatient (IN) | payer OTHER ==
[~2018-01-18] VITALS: Ht 154.9 cm; Wt 79.5 kg
--- NOTE | ~2018-01-18 | EKG ---
[place], [place] ELECTROCARDIOGRAM REPORT NAME: NICHOLAS BURDICK UNIT #: [id number] ROOM: 505 DOCTOR: FORREST DRAFT REPORT BIRTHDATE: [birth year] [facility] Test Date: 2018-01-18 Test Time: 17:05:24 Pat Name: NICHOLAS BURDICK Department: Room: [facility] Gender: F Digital Production Manager: : 1955 Requested By: JULIA MONDRAGON Order Number: [id number] Reading MD: Carlo Levi MD Measurements Intervals [place] Rate: 121 P: 70 DC: 108 QRS: 70 QRSD: 82 T: 58 QT: 303 QTc: 430 Interpretive Statements Sinus tachycardia Compared to ECG 12/14/2017 22:49:44 Sinus rhythm no longer present Electronically Signed On 01-19-2018 4:29:37 PDT by Carlo Levi MD CM:EKGRPT:ELECTROCARDIOGRAM REPORT [id number] 0429 JULIA MCCLOUD DRAFT REPORT JULIA MONDRAGON DO
--- NOTE | ~2018-01-18 | EKG ---
[place], [place] ELECTROCARDIOGRAM REPORT NAME: NICHOLAS BURDICK UNIT #: [id number] ROOM: 505 DOCTOR: FORREST DRAFT REPORT BIRTHDATE: [birth year] [facility] Test Date: 2018-01-18 Test Time: 20:18:15 Pat Name: NICHOLAS BURDICK Department: Room: 505 Gender: F Dry Goods Inspector: : 1955 Requested By: LISA YI Order Number: [id number] Reading MD: Carlo Levi MD Measurements Intervals [place] Rate: 100 P: 64 CA: 125 QRS: 65 QRSD: 79 T: 49 QT: 333 QTc: 430 Interpretive Statements Sinus tachycardia Compared to ECG 12/14/2017 22:49:44 Sinus rhythm no longer present Electronically Signed On 01-19-2018 4:30:20 PDT by Carlo Levi MD CM:EKGRPT:ELECTROCARDIOGRAM REPORT 17 0430 LISA MCCLOUD DRAFT REPORT LISA YI DO
--- NOTE | ~2018-01-18 | EKG ---
[place], [place] ELECTROCARDIOGRAM REPORT NAME: NICHOLAS BURDICK UNIT #: [id number] ROOM: 505 DOCTOR: FORREST DRAFT REPORT BIRTHDATE: [birth year] [facility] Test Date: 2018-01-18 Test Time: 23:25:27 Pat Name: NICHOLAS BURDICK Department: Room: 505 Gender: F Device Test Engineer: ZHEN : 1955 Requested By: LIAS YI Order Number: [id number] Reading MD: Carlo Levi MD Measurements Intervals [place] Rate: 90 P: 77 AL: 128 QRS: 70 QRSD: 85 T: 55 QT: 364 QTc: 446 Interpretive Statements Sinus rhythm Minimal ST elevation, lateral leads Baseline wander in lead(s) V4 Compared to ECG 12/14/2017 22:49:44 ST (T wave) deviation now present Electronically Signed On 01-19-2018 14:12:42 PDT by Carlo Levi MD CM:EKGRPT:ELECTROCARDIOGRAM REPORT [id number] 1412 LISA MCCLOUD DRAFT REPORT LISA YI DO
--- NOTE | ~2018-01-18 | EKG ---
[place], [place] ELECTROCARDIOGRAM REPORT NAME: NICHOLAS BURDICK UNIT #: [id number] ROOM: 505 DOCTOR: EPIPHANY DRAFT REPORT BIRTHDATE: [birth year] [facility] Test Date: 2018-01-19 Test Time: 08:39:55 Pat Name: NICHOLAS BURDICK Department: Room: 505 2 Gender: F Vessel Liner: Urszula Rivers : 1955 Requested By: TAWANNA LEVI Order Number: [id number] Reading MD: Tawanna Levi MD Measurements Intervals [place] Rate: 78 P: 54 AL: 129 QRS: 57 QRSD: 82 T: 44 QT: 389 QTc: 444 Interpretive Statements Sinus rhythm Minimal ST elevation, inferior leads Compared to ECG 01/18/2018 20:18:15 ST (T wave) deviation now present Sinus tachycardia no longer present Electronically Signed On 01-19-2018 14:13:21 PDT by Tawanna Levi MD CM:EKGRPT:ELECTROCARDIOGRAM REPORT 0839 1413 TAWANNA LEVI MD EPIPHANY DRAFT REPORT TAWANNA LEVI MD
[2018-01-18 17:02] VITALS: BP 146/84
[2018-01-18 17:34] VITALS: BP 128/81
[2018-01-18 17:36] LABS: BASO # 0.1 10*3/uL (0.0-0.1); BASO % 0.6 % (0.0-1.0); EOS # 0.2 10*3/uL (0.0-0.4); EOS % 1.9 % (1.0-4.0); HEMATOCRIT 44.3 % (37.0-47.0); HEMOGLOBIN 13.9 g/dl (12.0-16.0); LYMPH # 2.9 10*3/uL (1.3-4.4); LYMPH % 26.7 % (27.0-41.0); MEAN CELL VOLUME 88.4 fl (81.0-99.0); MEAN CORPUSCULAR HGB 27.7 pg (27.0-31.0); MEAN CORPUSCULAR HGB CONC 31.4 g/dl (33.0-37.0); MEAN PLATELET VOLUME 11.9 fl (9.6-12.3); MONO # 0.7 10*3/uL (0.1-1.0); MONO % 6.5 % (3.0-9.0); NEUT # 6.9 10*3/uL (2.3-7.9); NEUT % 63.7 % (47.0-73.0); PLATELET COUNT AUTOMATED 185 10*3/uL (130-400); RED BLOOD COUNT 5.01 10*6/uL (4.10-5.10); RED CELL DISTRI WIDTH 13.7 % (0-14.5); WHITE BLOOD COUNT 10.8 10*3/uL (4.8-10.8)
[2018-01-18 17:54] LABS: ALBUMIN 3.5 gm/dl (3.1-4.5); ALKALINE PHOSPHATASE 115 U/L (45-117); BUN 13 mg/dl (7-24); CHLORIDE 106 mmol/L (98-107); CREATININE 0.92 mg/dL (0.55-1.02); POTASSIUM 3.8 mmol/L (3.5-5.1); SGOT/AST 62 IU/L (3-35); SGPT/ALT 67 U/L (12-78); SODIUM 139 mmol/L (136-145); TOTAL PROTEIN 7.6 gm/dL (6.4-8.2); TROPONIN I < 0.015 ng/ml (<0.045)
[2018-01-18 18:02] VITALS: BP 123/87
[2018-01-18 19:35] VITALS: BP 136/78
[2018-01-18 20:00] VITALS: BP 136/78
[2018-01-18] MEDS ORDERED: IMITREX4 MG/0.5 M SQ (20:01)
[2018-01-18] MEDS ORDERED: VALIUM10 MG PO (20:40)
[2018-01-19 01:17] VITALS: BP 122/76
[2018-01-19 06:23] LABS: ALBUMIN 3.3 gm/dl (3.1-4.5); BUN 12 mg/dl (7-24); CHLORIDE 103 mmol/L (98-107); CHOLESTEROL 56 mg/dL (<200); CREATININE 0.73 mg/dL (0.55-1.02); PHOSPHOROUS 4.7 mg/dL (2.5-4.9); SGOT/AST 54 IU/L (3-35); SGPT/ALT 60 U/L (12-78); SODIUM 141 mmol/L (136-145); TRIGLYCERIDES 117 mg/dl (<150); VLDL CHOLESTEROL 23 mg/dL (6-40)
[2018-01-19 06:29] LABS: ALKALINE PHOSPHATASE 102 U/L (45-117); FREE T4 1.23 ng/dl (0.76-1.46); HDL CHOLESTEROL 14 mg/dl (40-60); LDL CHOLESTEROL 19 mg/dL (9-159)
[2018-01-19 06:32] LABS: ACT PARTIAL THROMBO TIME 22.5 SECONDS (20.8-31.5); BASO # 0.1 10*3/uL (0.0-0.1); BASO % 0.6 % (0.0-1.0); EOS # 0.3 10*3/uL (0.0-0.4); EOS % 3.8 % (1.0-4.0); HEMATOCRIT 46.2 % (37.0-47.0); HEMOGLOBIN 13.9 g/dl (12.0-16.0); LYMPH # 2.9 10*3/uL (1.3-4.4); LYMPH % 35.4 % (27.0-41.0); MEAN CORPUSCULAR HGB 27.5 pg (27.0-31.0); MEAN CORPUSCULAR HGB CONC 30.1 g/dl (33.0-37.0); MEAN PLATELET VOLUME 12.9 fl (9.6-12.3); MONO # 0.6 10*3/uL (0.1-1.0); MONO % 7.9 % (3.0-9.0); NEUT # 4.2 10*3/uL (2.3-7.9); NEUT % 51.8 % (47.0-73.0); PLATELET COUNT AUTOMATED 177 10*3/uL (130-400); RED BLOOD COUNT 5.05 10*6/uL (4.10-5.10); WHITE BLOOD COUNT 8.1 10*3/uL (4.8-10.8)
[2018-01-19 06:33] LABS: MEAN CELL VOLUME 91.5 fl (81.0-99.0)
[2018-01-19 08:00] VITALS: BP 124/92
[2018-01-19 08:07] LABS: VITAMIN D, 25-HYDROXY 35.3 ng/mL (30-100)
[2018-01-19] MEDS ORDERED: LIPITOR80 MG PO (11:05)
[2018-01-19] MEDS ORDERED: ASPIRIN ADULT L81 M1 PO (11:06)
[2018-01-19] MEDS ORDERED: CYCLOBENZAPRINE5 M3 PO (11:07)
[2018-01-19] MEDS ORDERED: MELOXICAM15 MG PO (11:08)
[2018-01-19] MEDS ORDERED: DIAZEPAM10 M1 PO (11:09)
[2018-01-19] MEDS ORDERED: SERTRALINE HYD100 MG PO (11:09)
[2018-01-19] MEDS ORDERED: GABAPENTIN100 M2 PO (11:10)
[2018-01-19] MEDS ORDERED: STIOLTO RESPIMAT4 GM INH (11:11)
[2018-01-19] MEDS ORDERED: MULTI-VITAMIN1 EACH PO (11:13)
[2018-01-19] MEDS ORDERED: SUMATRIPTA6 MG/0.52 SC (11:13)
[2018-01-19] MEDS ORDERED: LEVAQUIN750 M1 PO (11:18)
[2018-04-05] MEDS ORDERED: CYCLOBENZAPRINE5 M3 PO (21:24)
[2018-04-06] MEDS ORDERED: AMINOPHYLLIN200 MG PO (05:58)
[2018-04-06] MEDS ORDERED: NEURONTIN300 MG PO (07:22)
[2018-04-06] MEDS ORDERED: STIOLTO RESPIMAT4 GM INH (09:51)
[2018-04-06] MEDS ORDERED: PROVENTIL HFA6.7 GM INH (09:52)
[2018-04-07] MEDS ORDERED: ARIPIPRAZOLE2 MG PO (12:57)
== END 2018-01-19 14:15 | disposition home or self-care (01) | DRG 313 ==
LOC: ED 17:00 → 5E 18:45 → EDHOLD 18:45 → 5E 19:06
PROVIDERS: Emergency Medicine; Internal Medicine
DX: R07.89 Other chest pain (principal); B19.20 Unspecified viral hepatitis C without hepatic coma; G43.909 Migraine, unspecified, not intractable, without status migrainosus; R73.9 Hyperglycemia, unspecified; R74.0 Nonspecific elevation of levels of transaminase and lactic acid dehydrogenase [LDH]; R00.0 Tachycardia, unspecified; K21.9 Gastro-esophageal reflux disease without esophagitis; F41.9 Anxiety disorder, unspecified; G62.9 Polyneuropathy, unspecified; R73.03 Prediabetes; F34.1 Dysthymic disorder; G89.4 Chronic pain syndrome; I10 Essential (primary) hypertension; J44.9 Chronic obstructive pulmonary disease, unspecified; F17.210 Nicotine dependence, cigarettes, uncomplicated; F32.9 Major depressive disorder, single episode, unspecified; Z86.11 Personal history of tuberculosis; Z85.42 Personal history of malignant neoplasm of other parts of uterus; Z71.6 Tobacco abuse counseling; Z88.6 Allergy status to analgesic agent; Z79.899 Other long term (current) drug therapy; Z86.73 Personal history of transient ischemic attack (TIA), and cerebral infarction without residual deficits; Z85.43 Personal history of malignant neoplasm of ovary; Z87.440 Personal history of urinary (tract) infections; Z90.710 Acquired absence of both cervix and uterus; Z80.9 Family history of malignant neoplasm, unspecified; Z83.6 Family history of other diseases of the respiratory system; Z82.49 Family history of ischemic heart disease and other diseases of the circulatory system

== ENCOUNTER 2018-04-03 14:34 | Emergency (ER) | payer OTHER ==
[~2018-04-03] VITALS: Ht 162.5 cm; Wt 77.6 kg
[~2018-04-03 14:34] MED LIST changes: +ASPIRIN ADULT L81 M1 PO; +CYCLOBENZAPRINE5 M3 PO; +DIAZEPAM10 M1 PO; +GABAPENTIN100 M2 PO; +IMITREX4 MG/0.5 M SQ; +LEVAQUIN750 M1 PO; +LIPITOR80 MG PO; +MELOXICAM15 MG PO; +MULTI-VITAMIN1 EACH PO; +SERTRALINE HYD100 MG PO; +STIOLTO RESPIMAT4 GM INH; +SUMATRIPTA6 MG/0.52 SC
[2018-04-03] MEDS ORDERED: MOBIC7.5 MG PO (15:02)
[2018-04-03] MEDS ORDERED: VERELAN240 MG PO (15:03)
[2018-04-03] MEDS ORDERED: ZOLOFT100 MG PO (15:03)
[2018-04-03] MEDS ORDERED: VALIUM10 MG PO (15:04)
[2018-04-03] MEDS ORDERED: GRALISE300 M1 PO (15:05)
[2018-04-03] MEDS ORDERED: ALSUMA6 MG/0.5 M SC (15:06)
[2018-04-03] MEDS ORDERED: OMEPRAZOLE MAGN20 MG PO (15:07)
[2018-04-03] MEDS ORDERED: ASPIRIN CHEWABL81 MG PO (15:08)
[2018-04-03] MEDS ORDERED: KEPPRA250 MG PO (15:09)
[2018-04-03] MEDS ORDERED: LAMICTAL100 MG PO (15:09)
[2018-04-03 16:42] LABS: BILIRUBIN NEGATIVE (NEGATIVE); BLOOD NEGATIVE (NEGATIVE); CLARITY CLEAR (CLEAR); COLOR YELLOW (YELLOW); GLUCOSE NEGATIVE (NEGATIVE); KETONE NEGATIVE (NEGATIVE); LEUKO ESTERASE 1+ (NEGATIVE); NITRITE NEGATIVE (NEGATIVE); UROBILINOGEN 0.2 E.U./dl (0.2-1.0)
[2018-04-03 16:48] LABS: BACTERIA 2+; RBC 0-2 rbc/hpf (0-2); WBC 31-40 wbc/hpf (0-5)
[2018-04-03] MEDS ORDERED: CEFUROXIME AXE500 MG PO (16:56)
[2018-04-03] MEDS ORDERED: ROBAXIN500 M1 PO (16:56)
[2018-04-03] MEDS ORDERED: NAPROSYN500 MG PO (16:56)
[2018-04-03] MEDS ORDERED: PREDNISONE50 MG PO (16:56)
[2018-04-05] MEDS ORDERED: CYCLOBENZAPRINE5 M3 PO (21:24)
[2018-04-06] MEDS ORDERED: AMINOPHYLLIN200 MG PO (05:58)
[2018-04-06] MEDS ORDERED: NEURONTIN300 MG PO (07:22)
[2018-04-06] MEDS ORDERED: STIOLTO RESPIMAT4 GM INH (09:51)
[2018-04-06] MEDS ORDERED: PROVENTIL HFA6.7 GM INH (09:52)
[2018-04-07] MEDS ORDERED: ARIPIPRAZOLE2 MG PO (12:57)
== END 2018-04-03 16:59 | disposition home or self-care (01) ==
LOC: ED 14:34
PROVIDERS: Nurse Practitioner Family
DX: S20.211A Contusion of right front wall of thorax, initial encounter (principal); J20.9 Acute bronchitis, unspecified; N39.0 Urinary tract infection, site not specified; F17.200 Nicotine dependence, unspecified, uncomplicated; Z88.6 Allergy status to analgesic agent; Z79.899 Other long term (current) drug therapy; Z79.82 Long term (current) use of aspirin; Z79.2 Long term (current) use of antibiotics; Z90.710 Acquired absence of both cervix and uterus; W18.2XXA Fall in (into) shower or empty bathtub, initial encounter; Y93.89 Activity, other specified; Y92.89 Other specified places as the place of occurrence of the external cause; Y99.8 Other external cause status

== ENCOUNTER 2018-04-08 13:12 | Inpatient (IN) | payer OTHER ==
[~2018-04-08] VITALS: Ht 154.9 cm; Wt 77.6 kg
--- NOTE | ~2018-04-08 | PR ---
[place], [place] PROGRESS NOTE NAME: NICHOLAS BURDICK UNIT #: [id number] ROOM: 315 DOCTOR: MICHELET CHAPARRO MD BIRTHDATE: [birth year] DOS: 04/10/2018 INTERVAL NOTE CHIEF COMPLAINT: "I am sorry, I treated you that way yesterday." SUMMARY OF THE VISIT: The patient was interviewed in the dining area where she was sitting waiting for breakfast. She engaged readily in brief superficial conversation. She reported appropriate remorse for her irritability yesterday and stated that she had just not slept well and was just feeling upset about the whole process. She reports that she is sleeping better with the Remeron and has had the best sleep she has had in some time because of it. She reports she is not suicidal or homicidal, and continues to voice that she is making good plans for the future. MENTAL STATUS: She is alert and oriented. Mood does seem to be trending towards euthymia. Affect is more appropriate. There is no robert or hypomania. There is no gross psychosis. Short term memory does have gaps, otherwise, she is intact. PLAN: I will continue her current psychotropic regimen and continue to engage in individual and lou milieu activity, returning then to the least restrictive environment when psychiatrically stable. MICHEELT CHAPARRO MD CM:PNTRANS 0931 1428 MICHELET CHAPARRO MD 04/10/18 1428 interface
--- NOTE | ~2018-04-08 | DS ---
[place], [place] DISCHARGE SUMMARY NAME: [facility]URDICK [id number] UNIT #: [id number] ROOM: 315 DOCTOR: MICHELET CHAPARRO MD BIRTHDATE: [birth year] DOS: 04/11/2018 CHIEF COMPLAINT: "I don't need to be here on a 302, I need to go home." HISTORY OF PRESENT ILLNESS: This is a 62-year-old white female who was admitted through the Emergency Room at [facility]. The patient had recently been in the intensive care unit at [facility] following an overdose attempt on Valium and ended up returning home. Subsequently, while at home, she got into arguments with neighbors and police were called, who brought her into the Emergency Room for evaluation. During that period of time in the Emergency Room, the patient became very irate and voiced a plan to hang herself or overdose on pills. Subsequently, she began denying suicidality, but because of her significant overdose of the Valium, it was felt that inpatient stabilization was warranted to further assess lethality and to engage in individual and lou milieu activities. SUMMARY OF HOSPITAL COURSE: The patient was admitted to the unit where screening examinations revealed her to have a slightly elevated serum ammonia level at 42. For this elevation, she was started on lactulose 20 grams daily. Additionally, she was started on Remeron 15 mg at bedtime as an antidepressant that would rapidly improve sleep and appetite. The Remeron did indeed improve her sleep and appetite dramatically. In fact, she reported that this is the best sleep she had for some many months. She was monitored over the next several days for both the risks and benefits of the medication and the patient continue to receive benefit from the Remeron, sleeping soundly through the night, waking up more refreshed, able to eat better and attended to her ADLs. She convincingly throughout her stay denied suicidal thoughts and voiced positive plans for the future, wanting to find a different residence to start counseling services and overall turn her life around. The patient was discharged then back home on 04/11/2018 with a prescription for both the lactulose and the Remeron. MENTAL STATUS AT DISCHARGE: She is alert and oriented. Mood does seem to be trending towards euthymia. Affect is more appropriate. The neurovegetative symptoms had improved dramatically. There were no suicidal thoughts, no homicidal thoughts, no self-injurious thoughts. There was no hypomania or robert. There were no auditory or visual hallucinations. No delusions, no paranoia. Memory was intact. DIAGNOSIS AT DISCHARGE: Major depression, recurrent, severe; dysthymic disorder, borderline personality disorder and polysubstance dependence. DISPOSITION: Her prescriptions have been printed and will be sent with her. We will attempt first to fill them at [facility], if this is not possible, they will be sent to [facility] where the prescription then can be delivered directly to her door. At the time of discharge, she was medically stable. There were no acute medical issues and psychiatrically she was stable. [place], [place] DISCHARGE SUMMARY NAME: NICHOLAS BURDICK UNIT #: [id number] ROOM: [facility] DOCTOR: MICHELET CHAPARRO MD BIRTHDATE: [birth year] MICHELET CHAPARRO MD CM:DISCHARG 0850 1629 MICHELET CHAPARRO MD 04/11/18 1628 interface
--- NOTE | ~2018-04-08 | EKG ---
[place], [place] ELECTROCARDIOGRAM REPORT NAME: NICHOLAS BURDICK UNIT #: [id number] ROOM: 315 DOCTOR: FORREST DRAFT REPORT BIRTHDATE: [birth year] [facility] Test Date: 2018-04-08 Test Time: 13:53:26 Pat Name: NICHOLAS BURDICK Department: Room: [facility] Gender: F Gut Sorter: MAEVE : 1955 Requested By: RIN CARVER Order Number: [id number] Reading MD: Dmitry Gutierrez MD Measurements Intervals [place] Rate: 96 P: 61 CT: 128 QRS: 43 QRSD: 78 T: 45 QT: 341 QTc: 431 Interpretive Statements Sinus rhythm Borderline low voltage, extremity leads Compared to ECG 04/05/2018 20:10:21 No significant changes Electronically Signed On 04-09-2018 15:30:57 PST by Dmitry Gutierrez MD CM:EKGRPT:ELECTROCARDIOGRAM REPORT 1353 1530 RIN MCCLOUD DRAFT REPORT RIN CARVER DO
--- NOTE | ~2018-04-08 | WRIGHTHP ---
[place], [place] PATIENT HISTORY AND PHYSICAL EXAM NAME: NICHOLAS BURDICK UNIT #: [id number] ROOM: 315 DOCTOR: MICHELET CHAPARRO MD BIRTHDATE: [birth year] DOS: 04/09/2018 CHIEF COMPLAINT: "I don't need to be here on a 302. I need to go home." HISTORY OF PRESENT ILLNESS: This is a 62-year-old white female who was admitted through the Emergency Room. The patient had been here previously in ICU following an overdose attempt of Valium, but did return home. Subsequently, while at home, she got into an argument with neighbors and police were called, who brought her into the Emergency Room. At that time, the patient was voicing a plan to hang herself or take an overdose of pills. The patient subsequently now has been denying that she is suicidal. In any case, she has been very volatile and unpredictable and has not been following up with care. She never filled her prescription of Abilify that was written for her in the summer. She minimized her symptoms now, but initially upon admission, the patient was endorsing significant neurovegetative symptoms. She is now remaining in the hospital to further assess lethality to determine the least restrictive environment to which she could be discharged to and determine appropriate treatment options. PAST MEDICAL HISTORY: Remarkable for hyperlipidemia, hepatitis C, GERD, chronic pain, hypertension, COPD, marijuana abuse, neuropathy, CVA, obesity, diabetes, vitamin D deficiency. ALLERGIES: SHE ALSO LISTS ALLERGIES TO ACETAMINOPHEN AND TRAMADOL. SOCIAL HISTORY: The patient does endorse smoking cigarettes, using marijuana and drinking alcohol. STRENGTHS: Good verbal skills, ambulatory. WEAKNESSES: Poor coping skills, history of polysubstance use and long-term psychiatric illness. MENTAL STATUS: She is alert and oriented with time gaps. She mixes some of the past with present and it is hard to pin her down as far as the history goes. She was rather dismissive and did not want to engage much in conversation and became angry when I told her she would not necessarily be going home today. The patient does appear somewhat depressed and is flat and blunted in her presentation. I did not see the presence of any hypomania or robert and likewise I did not see the presence of any psychotic symptomatology. Memory does have gaps. DIAGNOSIS: Major depression, recurrent, severe; dysthymic disorder, borderline personality disorder, polysubstance dependence. PLAN: Marysol Johnson, nurse practitioner has already started her on Remeron 15 mg at bedtime, which she reports did benefit her and she was able to sleep through the night with it, I will maintain this. Screening examinations reveal an elevated serum ammonia level of 42. I will start lactulose 20 grams daily and increase this if needed. We will engage in individual and lou milieu [place], [place] PATIENT HISTORY AND PHYSICAL EXAM NAME: NICHOLAS BURDICK UNIT #: [id number] ROOM: [facility] DOCTOR: MICHELET CHAPARRO MD BIRTHDATE: [birth year] activity, returning then to the least restrictive environment when psychiatrically stable. MICHELET CHAPARRO MD CM:HISPHYS:PATIENT HISTORY AND PHYSICAL EXAMINATION 0851 2 MICHELET CHAPARRO MD 04/09/18902 interface
[~2018-04-08 13:12] MED LIST changes: +ALSUMA6 MG/0.5 M SC; +AMINOPHYLLIN200 MG PO; +ARIPIPRAZOLE2 MG PO; +ASPIRIN CHEWABL81 MG PO; +CEFUROXIME AXE500 MG PO; +GRALISE300 M1 PO; +MOBIC7.5 MG PO; +NAPROSYN500 MG PO; +OMEPRAZOLE MAGN20 MG PO; +PREDNISONE50 MG PO; +PROVENTIL HFA6.7 GM INH; +ROBAXIN500 M1 PO; +VERELAN240 MG PO
[2018-04-08 13:14] VITALS: BP 130/78
[2018-04-08 13:34] LABS: BASO % 0.4 % (0.0-1.0); EOS # 0.2 10*3/uL (0.0-0.4); EOS % 3.5 % (1.0-4.0); HEMOGLOBIN 13.5 g/dl (12.0-16.0); LYMPH # 1.6 10*3/uL (1.3-4.4); LYMPH % 30.3 % (27.0-41.0); MEAN CELL VOLUME 89.6 fl (81.0-99.0); MEAN CORPUSCULAR HGB 28.1 pg (27.0-31.0); MEAN CORPUSCULAR HGB CONC 31.4 g/dl (33.0-37.0); MEAN PLATELET VOLUME 10.4 fl (9.6-12.3); MONO # 0.4 10*3/uL (0.1-1.0); MONO % 6.7 % (3.0-9.0); NEUT # 3.2 10*3/uL (2.3-7.9); NEUT % 58.7 % (47.0-73.0); PLATELET COUNT AUTOMATED 170 10*3/uL (130-400); RED CELL DISTRI WIDTH 13.6 % (0-14.5); WHITE BLOOD COUNT 5.4 10*3/uL (4.8-10.8)
[2018-04-08 13:43] LABS: ACT PARTIAL THROMBO TIME 21.9 SECONDS (20.8-31.5)
[2018-04-08 13:45] LABS: ALBUMIN 3.2 gm/dl (3.1-4.5); BUN 11 mg/dl (7-24); CHLORIDE 108 mmol/L (98-107); LIPASE 110 U/L (73-393); POTASSIUM 4.3 mmol/L (3.5-5.1); SODIUM 142 mmol/L (136-145)
[2018-04-08 13:50] LABS: ALKALINE PHOSPHATASE 120 U/L (45-117); CREATININE 0.77 mg/dL (0.55-1.02); SGOT/AST 42 IU/L (3-35); SGPT/ALT 45 U/L (12-78); TOTAL PROTEIN 6.9 gm/dL (6.4-8.2)
[2018-04-08 13:51] LABS: ACETAMINOPHEN (TYLENOL) < 5.0 ug/ml (10-30); TROPONIN I < 0.015 ng/ml (<0.045)
[2018-04-08 13:56] LABS: ETHYL ALCOHOL < 3.0 mg/dl (<3)
[2018-04-08 13:57] LABS: BILIRUBIN NEGATIVE (NEGATIVE); BLOOD NEGATIVE (NEGATIVE); CLARITY CLEAR (CLEAR); COLOR YELLOW (YELLOW); GLUCOSE NEGATIVE (NEGATIVE); KETONE NEGATIVE (NEGATIVE); LEUKO ESTERASE NEGATIVE (NEGATIVE); NITRITE NEGATIVE (NEGATIVE); UROBILINOGEN 0.2 E.U./dl (0.2-1.0)
[2018-04-08 14:07] LABS: BACTERIA 2+; WBC 0-2 wbc/hpf (0-5)
[2018-04-08 14:18] LABS: URINE AMPHETAMINES < 1000 (1000ng/ml); URINE BARBITURATES < 200 (200ng/ml); URINE BENZODIAZEPINES > 200 (200ng/ml); URINE CANNABINOIDS (THC) < 50 (50ng/ml); URINE COCAINE < 300 (300ng/ml)
[2018-04-08 14:30] LABS: URINE METHADONE < 300 (300ng/ml); URINE OPIATES < 300 (300ng/ml); URINE PHENCYCLIDINE < 25 (25ng/ml)
[2018-04-08 21:14] VITALS: BP 128/74
[2018-04-09 07:33] VITALS: BP 139/78
[2018-04-09 07:38] LABS: CHOLESTEROL 77 mg/dL (<200); HDL CHOLESTEROL 18 mg/dl (40-60); LDL CHOLESTEROL 35 mg/dL (9-159); TRIGLYCERIDES 118 mg/dl (<150); VLDL CHOLESTEROL 24 mg/dL (6-40)
[2018-04-09 19:52] VITALS: BP 123/75
[2018-04-10 08:15] VITALS: BP 129/85
[2018-04-10 18:40] VITALS: BP 144/83
[2018-04-11 07:40] VITALS: BP 133/72
[2018-04-11] MEDS ORDERED: MIRTAZAPINE15 M2 PO (08:29)
[2018-04-11] MEDS ORDERED: LACTULOSE20 GM/30 M PO (08:29)
== END 2018-04-11 11:59 | disposition home or self-care (01) | DRG 885 ==
LOC: ED 13:12 → 3N 18:57 → EDHOLD 18:57 → 3N 19:51
PROVIDERS: Emergency Medicine; Registered Nurse
DX: F33.3 Major depressive disorder, recurrent, severe with psychotic symptoms (principal); R45.851 Suicidal ideations; E72.20 Disorder of urea cycle metabolism, unspecified; E87.2 Acidosis; F34.1 Dysthymic disorder; K21.9 Gastro-esophageal reflux disease without esophagitis; E55.9 Vitamin D deficiency, unspecified; E11.65 Type 2 diabetes mellitus with hyperglycemia; F41.9 Anxiety disorder, unspecified; F17.210 Nicotine dependence, cigarettes, uncomplicated; G89.4 Chronic pain syndrome; E11.40 Type 2 diabetes mellitus with diabetic neuropathy, unspecified; I10 Essential (primary) hypertension; J44.9 Chronic obstructive pulmonary disease, unspecified; E66.9 Obesity, unspecified; E87.8 Other disorders of electrolyte and fluid balance, not elsewhere classified; F60.3 Borderline personality disorder; Z71.6 Tobacco abuse counseling; Z88.6 Allergy status to analgesic agent; Z86.73 Personal history of transient ischemic attack (TIA), and cerebral infarction without residual deficits; Z90.710 Acquired absence of both cervix and uterus

== ENCOUNTER → 2018-05-20 | Emergency (ER) | payer OTHER ==
[~2018-05-20] VITALS: Ht 154.9 cm; Wt 80.7 kg
[~2018-05-20] MED LIST changes: +LACTULOSE20 GM/30 M PO; +MIRTAZAPINE15 M2 PO
[2018-05-20 14:21] LABS: BASO # 0.1 10*3/uL (0.0-0.1); EOS # 0.2 10*3/uL (0.0-0.4); EOS % 3.1 % (1.0-4.0); HEMATOCRIT 47.4 % (37.0-47.0); HEMOGLOBIN 15.5 g/dl (12.0-16.0); LYMPH # 2.2 10*3/uL (1.3-4.4); LYMPH % 33.4 % (27.0-41.0); MEAN CELL VOLUME 86.7 fl (81.0-99.0); MEAN CORPUSCULAR HGB 28.3 pg (27.0-31.0); MEAN CORPUSCULAR HGB CONC 32.7 g/dl (33.0-37.0); MONO # 0.5 10*3/uL (0.1-1.0); MONO % 7.3 % (3.0-9.0); NEUT # 3.7 10*3/uL (2.3-7.9); NEUT % 54.8 % (47.0-73.0); PLATELET COUNT AUTOMATED 191 10*3/uL (130-400); RED BLOOD COUNT 5.47 10*6/uL (4.10-5.10); RED CELL DISTRI WIDTH 12.9 % (0-14.5); WHITE BLOOD COUNT 6.7 10*3/uL (4.8-10.8)
[2018-05-20 14:35] LABS: ALBUMIN 3.7 gm/dl (3.1-4.5); ALKALINE PHOSPHATASE 137 U/L (45-117); BUN 15 mg/dl (7-24); CHLORIDE 106 mmol/L (98-107); LIPASE 66 U/L (73-393); POTASSIUM 3.5 mmol/L (3.5-5.1); SGOT/AST 49 IU/L (3-35); SGPT/ALT 45 U/L (12-78); SODIUM 141 mmol/L (136-145); TOTAL PROTEIN 7.9 gm/dL (6.4-8.2)
[2018-05-20 15:25] LABS: BILIRUBIN NEGATIVE (NEGATIVE); BLOOD NEGATIVE (NEGATIVE); CLARITY SL CLOUDY (CLEAR); COLOR YELLOW (YELLOW); GLUCOSE NEGATIVE (NEGATIVE); KETONE NEGATIVE (NEGATIVE); LEUKO ESTERASE TRACE (NEGATIVE); NITRITE NEGATIVE (NEGATIVE); UROBILINOGEN 0.2 E.U./dl (0.2-1.0)
[2018-05-20 15:30] LABS: BACTERIA 1+; MUCOUS 1+
[2018-05-20 15:34] LABS: URINE AMPHETAMINES < 1000 (1000ng/ml); URINE BARBITURATES < 200 (200ng/ml); URINE BENZODIAZEPINES > 200 (200ng/ml); URINE CANNABINOIDS (THC) < 50 (50ng/ml); URINE COCAINE < 300 (300ng/ml); URINE METHADONE < 300 (300ng/ml); URINE OPIATES < 300 (300ng/ml)
[2018-05-20 15:37] LABS: URINE PHENCYCLIDINE < 25 (25ng/ml)
== END ==
LOC: ED 13:28
PROVIDERS: Physician Assistant
DX: N39.0 Urinary tract infection, site not specified (principal); F32.9 Major depressive disorder, single episode, unspecified; R44.1 Visual hallucinations; R44.0 Auditory hallucinations; R45.851 Suicidal ideations; F17.200 Nicotine dependence, unspecified, uncomplicated; Z88.6 Allergy status to analgesic agent; Z79.899 Other long term (current) drug therapy; Z79.82 Long term (current) use of aspirin

== ENCOUNTER 2018-09-04 14:49 | Emergency (ER) | payer OTHER ==
[~2018-09-04] VITALS: Ht 162.5 cm; Wt 122.5 kg
[2018-09-04 16:18] LABS: BASO # 0.1 10*3/uL (0.0-0.1); BASO % 0.5 % (0.0-1.0); EOS # 0.4 10*3/uL (0.0-0.4); EOS % 3.8 % (1.0-4.0); HEMOGLOBIN 14.2 g/dl (12.0-16.0); LYMPH # 2.9 10*3/uL (1.3-4.4); LYMPH % 29.1 % (27.0-41.0); MEAN CORPUSCULAR HGB 27.5 pg (27.0-31.0); MEAN CORPUSCULAR HGB CONC 31.6 g/dl (33.0-37.0); MEAN PLATELET VOLUME 12.2 fl (9.6-12.3); MONO # 0.6 10*3/uL (0.1-1.0); MONO % 6.4 % (3.0-9.0); NEUT # 5.9 10*3/uL (2.3-7.9); NEUT % 59.7 % (47.0-73.0); PLATELET COUNT AUTOMATED 186 10*3/uL (130-400); RED BLOOD COUNT 5.17 10*6/uL (4.10-5.10); RED CELL DISTRI WIDTH 13.8 % (0-14.5); WHITE BLOOD COUNT 9.8 10*3/uL (4.8-10.8)
[2018-09-04 16:29] LABS: ACT PARTIAL THROMBO TIME 21.2 SECONDS (20.8-31.5); INTERNATIONAL NORM RATIO 0.9 (2.0-3.5)
[2018-09-04 16:35] LABS: ALBUMIN 3.4 gm/dl (3.1-4.5); ALKALINE PHOSPHATASE 121 U/L (45-117); BUN 16 mg/dl (7-24); CHLORIDE 103 mmol/L (98-107); CREATININE 0.61 mg/dL (0.55-1.02); POTASSIUM 3.1 mmol/L (3.5-5.1); SGOT/AST 101 IU/L (3-35); SGPT/ALT 97 U/L (12-78); SODIUM 139 mmol/L (136-145); TOTAL PROTEIN 7.3 gm/dL (6.4-8.2)
[2018-09-04 16:38] LABS: TROPONIN I < 0.015 ng/ml (<0.045)
[2018-09-04] MEDS ORDERED: CYCLOBENZAPRINE10 MG PO (17:39)
[2018-09-04] MEDS ORDERED: PREDNISONE50 MG PO (17:39)
[2018-09-07] MEDS ORDERED: NORCO 5-325 TA1 EACH PO (22:44)
== END 2018-09-04 17:45 | disposition home or self-care (01) ==
LOC: ED 14:49
PROVIDERS: Family Medicine
DX: M54.32 Sciatica, left side (principal); R60.0 Localized edema; G89.29 Other chronic pain; E11.9 Type 2 diabetes mellitus without complications; J44.9 Chronic obstructive pulmonary disease, unspecified; K21.9 Gastro-esophageal reflux disease without esophagitis; I10 Essential (primary) hypertension; E11.40 Type 2 diabetes mellitus with diabetic neuropathy, unspecified; E66.9 Obesity, unspecified; F17.200 Nicotine dependence, unspecified, uncomplicated; Z79.899 Other long term (current) drug therapy; Z79.82 Long term (current) use of aspirin; Z90.710 Acquired absence of both cervix and uterus; Z68.30 Body mass index [BMI] 30.0-30.9, adult

== ENCOUNTER 2018-11-18 14:31 | Inpatient (IN) | payer OTHER ==
[~2018-11-18] VITALS: Ht 157.4 cm; Wt 71.3 kg
--- NOTE | ~2018-11-18 | EKG ---
[place], [place] ELECTROCARDIOGRAM REPORT NAME: NICHOLAS BURDICK UNIT #: [id number] ROOM: 504 DOCTOR: FORREST DRAFT REPORT BIRTHDATE: [birth year] [facility] Test Date: 2018-11-18 Test Time: 15:13:37 Pat Name: NICHOLAS BURDICK Department: ER Room: 504 Gender: F Lumber Tying Machine Operator: : 1955 Requested By: RIN CARVER Order Number: [id number] Reading MD: Mary Grace Ordonez Measurements Intervals [place] Rate: 90 P: 74 MD: 119 QRS: 77 QRSD: 84 T: 43 QT: 371 QTc: 454 Interpretive Statements Sinus rhythm Borderline short MD interval Compared to ECG 04/08/2018 13:53:26 No significant changes Electronically Signed On 11-19-2018 12:38:18 PDT by Mary Grace Ordonez CM:EKGRPT:ELECTROCARDIOGRAM REPORT 1513 1238 RIN MCCLOUD DRAFT REPORT RIN CARVER DO
[~2018-11-18 14:31] MED LIST changes: +CYCLOBENZAPRINE10 MG PO; +NORCO 5-325 TA1 EACH PO
[2018-11-18 14:36] VITALS: BP 136/87
[2018-11-18 15:12] LABS: BILIRUBIN NEGATIVE (NEGATIVE); BLOOD NEGATIVE (NEGATIVE); CLARITY CLEAR (CLEAR); COLOR YELLOW (YELLOW); GLUCOSE 2+ (NEGATIVE); KETONE NEGATIVE (NEGATIVE); LEUKO ESTERASE NEGATIVE (NEGATIVE); NITRITE NEGATIVE (NEGATIVE); PH 6.5 (5.0-9.0); SPECIFIC GRAVITY 1.015 (1.005-1.030)
[2018-11-18 15:18] LABS: BACTERIA TRACE; MUCOUS 3+; WBC 0-2 wbc/hpf (0-5)
[2018-11-18 15:19] LABS: BASO # 0.1 10*3/uL (0.0-0.1); BASO % 0.7 % (0.0-1.0); EOS # 0.1 10*3/uL (0.0-0.4); EOS % 1.2 % (1.0-4.0); HEMOGLOBIN 14.9 g/dl (12.0-16.0); LYMPH # 2.1 10*3/uL (1.3-4.4); MEAN CELL VOLUME 89.5 fl (81.0-99.0); MEAN CORPUSCULAR HGB 28.4 pg (27.0-31.0); MEAN CORPUSCULAR HGB CONC 31.7 g/dl (33.0-37.0); MEAN PLATELET VOLUME 12.9 fl (9.6-12.3); MONO % 10.4 % (3.0-9.0); NEUT # 5.9 10*3/uL (2.3-7.9); NEUT % 64.3 % (47.0-73.0); PLATELET COUNT AUTOMATED 213 10*3/uL (130-400); RED BLOOD COUNT 5.25 10*6/uL (4.10-5.10); RED CELL DISTRI WIDTH 14.8 % (0-14.5); WHITE BLOOD COUNT 9.2 10*3/uL (4.8-10.8)
[2018-11-18 15:19] LABS: URINE AMPHETAMINES < 1000 (1000ng/ml); URINE BARBITURATES < 200 (200ng/ml); URINE BENZODIAZEPINES < 200 (200ng/ml); URINE CANNABINOIDS (THC) < 50 (50ng/ml); URINE COCAINE < 300 (300ng/ml); URINE METHADONE < 300 (300ng/ml); URINE OPIATES < 300 (300ng/ml)
[2018-11-18 15:22] LABS: URINE PHENCYCLIDINE < 25 (25ng/ml)
[2018-11-18 15:30] LABS: ACT PARTIAL THROMBO TIME 22.4 SECONDS (20.0-32.1)
[2018-11-18 15:53] LABS: ALBUMIN 3.1 gm/dl (3.1-4.5); ALKALINE PHOSPHATASE 168 U/L (45-117); BUN 14 mg/dl (7-24); CHLORIDE 100 mmol/L (98-107); CREATININE 0.52 mg/dL (0.55-1.02); LIPASE 108 U/L (73-393); SGOT/AST 301 IU/L (3-35); SGPT/ALT 241 U/L (12-78); SODIUM 137 mmol/L (136-145); TOTAL PROTEIN 7.6 gm/dL (6.4-8.2); TROPONIN I < 0.015 ng/ml (<0.045)
[2018-11-18 18:17] VITALS: BP 129/71
[2018-11-18 19:59] VITALS: BP 110/59
[2018-11-19 02:09] VITALS: BP 106/63
[2018-11-19 06:13] LABS: BASO # 0.1 10*3/uL (0.0-0.1); BASO % 0.9 % (0.0-1.0); EOS # 0.1 10*3/uL (0.0-0.4); EOS % 1.5 % (1.0-4.0); HEMATOCRIT 43.7 % (37.0-47.0); HEMOGLOBIN 13.6 g/dl (12.0-16.0); LYMPH # 1.8 10*3/uL (1.3-4.4); LYMPH % 26.9 % (27.0-41.0); MEAN CELL VOLUME 89.9 fl (81.0-99.0); MEAN CORPUSCULAR HGB CONC 31.1 g/dl (33.0-37.0); MEAN PLATELET VOLUME 13.3 fl (9.6-12.3); MONO # 0.6 10*3/uL (0.1-1.0); MONO % 8.8 % (3.0-9.0); NEUT % 61.3 % (47.0-73.0); PLATELET COUNT AUTOMATED 170 10*3/uL (130-400); RED BLOOD COUNT 4.86 10*6/uL (4.10-5.10); WHITE BLOOD COUNT 6.6 10*3/uL (4.8-10.8)
[2018-11-19 06:34] LABS: ALBUMIN 2.7 gm/dl (3.1-4.5); ALKALINE PHOSPHATASE 158 U/L (45-117); BUN 15 mg/dl (7-24); CHLORIDE 99 mmol/L (98-107); CHOLESTEROL 115 mg/dL (<200); CREATININE 0.48 mg/dL (0.55-1.02); FREE T4 1.56 ng/dl (0.76-1.46); HDL CHOLESTEROL 13 mg/dl (40-60); LDL CHOLESTEROL 80 mg/dL (9-159); PHOSPHOROUS 3.7 mg/dL (2.5-4.9); POTASSIUM 2.9 mmol/L (3.5-5.1); SGOT/AST 267 IU/L (3-35); SGPT/ALT 205 U/L (12-78); SODIUM 138 mmol/L (136-145); TOTAL PROTEIN 6.8 gm/dL (6.4-8.2); TRIGLYCERIDES 110 mg/dl (<150); VLDL CHOLESTEROL 22 mg/dL (6-40)
[2018-11-19 08:24] VITALS: BP 99/63
[2018-11-19 13:00] VITALS: BP 120/72
[2018-11-19 16:00] VITALS: BP 122/74
[2018-11-19] MEDS ORDERED: NOVOLOG10 ML IV (17:19)
[2018-11-19] MEDS ORDERED: NEURONTIN300 MG PO (17:20)
[2018-11-19] MEDS ORDERED: LANTUS SOL100 UNIT/1 SQ ×2 (17:21)
[2018-11-19] MEDS ORDERED: HYGROTON25 MG PO (17:22)
[2018-11-19] MEDS ORDERED: HYDROXYZINE HCL25 MG PO (17:23)
[2018-11-19] MEDS ORDERED: SPIRIVA -- 3018 MCG INH (17:25)
[2018-11-19] MEDS ORDERED: REMERON30 M1 PO (17:27)
[2018-11-19] MEDS ORDERED: MULTIVITAMINS1 EAC5 PO (17:27)
[2018-11-19] MEDS ORDERED: Ipratropium Brom3 ML INH (17:28)
[2018-11-19 20:00] VITALS: BP 122/74
[2018-11-20] VITALS: BP 140/66
[2018-11-20 08:00] VITALS: BP 136/77
[2018-11-20 08:54] LABS: ALBUMIN 2.9 gm/dl (3.1-4.5); ALKALINE PHOSPHATASE 165 U/L (45-117); BUN 17 mg/dl (7-24); CHLORIDE 104 mmol/L (98-107); CREATININE 0.62 mg/dL (0.55-1.02); SGOT/AST 459 IU/L (3-35); SGPT/ALT 254 U/L (12-78); SODIUM 139 mmol/L (136-145); TOTAL PROTEIN 7.2 gm/dL (6.4-8.2)
[2018-11-20 08:56] LABS: POTASSIUM 4.2 mmol/L (3.5-5.1)
[2018-11-20 16:00] VITALS: BP 104/74
[2018-11-20 20:00] VITALS: BP 121/63
[2018-11-21] VITALS: BP 122/66
[2018-11-21 08:00] VITALS: BP 120/64
[2018-11-21 12:00] VITALS: BP 123/64
[2018-11-21] MEDS ORDERED: Humalog SQ (15:50)
[2018-11-21] MEDS ORDERED: LISINOPRIL2.5 MG PO (15:50)
[2018-11-21 16:00] VITALS: BP 111/68
== END 2018-11-21 18:47 | disposition other institution (70) | DRG 74 ==
LOC: ED 14:31 → 5E 17:34 → EDHOLD 17:34 → 5E 11-19 09:06
PROVIDERS: Emergency Medicine; Family Medicine; Internal Medicine; ADMIT Internal Medicine
DX: E11.40 Type 2 diabetes mellitus with diabetic neuropathy, unspecified (principal); F33.9 Major depressive disorder, recurrent, unspecified; E87.6 Hypokalemia; R53.1 Weakness; R81 Glycosuria; R79.89 Other specified abnormal findings of blood chemistry; R79.82 Elevated C-reactive protein (CRP); R74.8 Abnormal levels of other serum enzymes; R74.0 Nonspecific elevation of levels of transaminase and lactic acid dehydrogenase [LDH]; J44.9 Chronic obstructive pulmonary disease, unspecified; B18.2 Chronic viral hepatitis C; K21.9 Gastro-esophageal reflux disease without esophagitis; F41.9 Anxiety disorder, unspecified; E66.9 Obesity, unspecified; M54.12 Radiculopathy, cervical region; G43.909 Migraine, unspecified, not intractable, without status migrainosus; E55.9 Vitamin D deficiency, unspecified; I10 Essential (primary) hypertension; Z87.891 Personal history of nicotine dependence; Z86.73 Personal history of transient ischemic attack (TIA), and cerebral infarction without residual deficits; Z90.710 Acquired absence of both cervix and uterus; Z82.49 Family history of ischemic heart disease and other diseases of the circulatory system; Z83.6 Family history of other diseases of the respiratory system; Z80.9 Family history of malignant neoplasm, unspecified; Z79.4 Long term (current) use of insulin; Z68.27 Body mass index [BMI] 27.0-27.9, adult

== ENCOUNTER → 2019-02-22 | Day surgery (SDC) | payer OTHER ==
[~2019-02-22] VITALS: Ht 157.4 cm; Wt 75.3 kg
[~2019-02-22] MED LIST changes: +HYDROXYZINE HCL25 MG PO; +HYGROTON25 MG PO; +Humalog SQ; +Ipratropium Brom3 ML INH; +LANTUS SOL100 UNIT/1 SQ; +LISINOPRIL2.5 MG PO; +MULTIVITAMINS1 EAC5 PO; +NOVOLOG10 ML IV; +REMERON30 M1 PO; +SPIRIVA -- 3018 MCG INH
--- NOTE | ~2019-02-22 | O ---
[place], [place] OPERATIVE NOTE NAME: NICHOLAS BURDICK UNIT #: [id number] ROOM: DOCTOR: ISAAC CADET MD BIRTHDATE: [birth year] DOS: 02/22/2019 GASTROENDOSCOPIC REPORT HISTORY OF PRESENT ILLNESS: A 63-year-old patient who has presented with chief complaint of abdominal pain, epigastric distress, undergoing the investigation. PAST MEDICAL HISTORY: Associated with hepatitis C, COPD, gastroesophageal reflux, diabetes mellitus, hypertension, anxiety. PAST SURGICAL HISTORY: Hysterectomy. FAMILY HISTORY: Noncontributory. ALLERGIES: No medication. SOCIAL HISTORY: Smoker, nonalcohol consumer. PROCEDURE: Today's procedure part of investigation is panendoscopy. PREMEDICATION: Propofol. SCOPE: Olympus forward-viewing gastroscope Q10 video. REPORT: After putting the patient in left lateral position and application of lubricant to the scope, the scope was introduced. Thereafter, under direct visualization, advanced through the length of colon without difficulty. Colon mucosa carefully examined. Diverticulosis was seen. A sessile polypoid lesion in rectum with piecemeal polypectomy removed. Base of the cecum explored, appendiceal orifice identified. Air was suctioned out. The patient was extubated, tolerated the procedure well. IMPRESSION: Diverticulosis, sessile colonic polyp rectal pouch, status post piecemeal polypectomy. PLAN AND DISCUSSION: I am going to proceed with panendoscopy. GASTROENDOSCOPIC REPORT INDICATION: The patient has presented with epigastric distress. PROCEDURE: Today's procedure part of investigation is panendoscopy plus biopsy. PREMEDICATION: Propofol. SCOPE: Olympus forward-viewing gastroscope Q10 video. REPORT: After putting the patient in left lateral position and application of lubricant to the scope, the scope was introduced. Thereafter, under direct visualization, advanced through the length of esophagus. No varicosities seen. [place], [place] OPERATIVE NOTE NAME: NICHOLAS BURDICK UNIT #: [id number] ROOM: DOCTOR: ISAAC CADET MD BIRTHDATE: [birth year] Gastritis seen. Antral biopsy obtained. Duodenal bulb, second and third part within normal limits. The patient extubated, tolerated the procedure well. IMPRESSION: Gastritis, status post biopsy. PLAN AND DISCUSSION: We are going to continue with omeprazole 20 mg 1 every day, outpatient followup. Avoiding smoking. FOLLOWUP: Routinely with you in office, p.r.n. visit with us in GI Clinic. ISAAC CADET MD CM:OPRECORD:OPERATIVE NOTE 1352 141 ISAAC CADET MD 02/22/19 1410 interface
[2019-02-22 12:54] VITALS: BP 120/68
[2019-02-22 13:45] VITALS: BP 84/63
[2019-02-22 14:00] VITALS: BP 113/48
[2019-02-22 14:15] VITALS: BP 114/63
== END | disposition home or self-care (01) ==
LOC: SDC 02-18 13:15
DX: R10.9 Unspecified abdominal pain (principal); K62.1 Rectal polyp; K57.30 Diverticulosis of large intestine without perforation or abscess without bleeding; K29.50 Unspecified chronic gastritis without bleeding; K21.9 Gastro-esophageal reflux disease without esophagitis; I10 Essential (primary) hypertension; E11.9 Type 2 diabetes mellitus without complications; J44.9 Chronic obstructive pulmonary disease, unspecified; F41.9 Anxiety disorder, unspecified; F32.9 Major depressive disorder, single episode, unspecified; G43.909 Migraine, unspecified, not intractable, without status migrainosus; Z86.19 Personal history of other infectious and parasitic diseases; Z90.710 Acquired absence of both cervix and uterus; Z79.899 Other long term (current) drug therapy; Z98.890 Other specified postprocedural states; Z85.43 Personal history of malignant neoplasm of ovary; Z82.49 Family history of ischemic heart disease and other diseases of the circulatory system

== ENCOUNTER → 2019-03-21 | Outpatient (CLI) | payer MEDICAID | END | disposition home or self-care (01) | LOC: US 02-11 00:30 | DX: E04.1 Nontoxic single thyroid nodule (principal) ==

== ENCOUNTER → 2019-05-03 | Day surgery (SDC) | payer MEDICAID | END | disposition home or self-care (01) | LOC: SDC 10:01 | PROVIDERS: Internal Medicine Endocrinology, Diabetes & Metabolism | DX: E04.1 Nontoxic single thyroid nodule (principal) ==

== ENCOUNTER → 2019-05-03 | Outpatient (CLI) | payer MEDICAID ==
[2019-05-03 10:17] LABS: ACT PARTIAL THROMBO TIME 24.8 SECONDS (20.0-32.1)
== END | disposition home or self-care (01) ==
LOC: LAB 00:05
PROVIDERS: Internal Medicine Endocrinology, Diabetes & Metabolism
DX: E04.1 Nontoxic single thyroid nodule (principal)

== ENCOUNTER 2019-10-22 17:29 | Inpatient (IN) | payer MEDICAID ==
[~2019-10-22] VITALS: Ht 167.6 cm; Wt 71.7 kg
[2019-10-22 17:52] VITALS: BP 133/69
[2019-10-22 18:18] LABS: BILIRUBIN NEGATIVE (NEGATIVE); BLOOD NEGATIVE (NEGATIVE); CLARITY CLEAR (CLEAR); COLOR YELLOW (YELLOW); GLUCOSE 2+ (NEGATIVE); KETONE NEGATIVE (NEGATIVE); LEUKO ESTERASE NEGATIVE (NEGATIVE); NITRITE NEGATIVE (NEGATIVE); SPECIFIC GRAVITY 1.025 (1.005-1.030); UROBILINOGEN 0.2 E.U./dl (0.2-1.0)
[2019-10-22 18:26] LABS: BACTERIA TRACE; MUCOUS 1+; URINE AMPHETAMINES < 1000 (1000ng/ml); URINE BARBITURATES < 200 (200ng/ml); URINE BENZODIAZEPINES < 200 (200ng/ml); URINE CANNABINOIDS (THC) < 50 (50ng/ml); URINE COCAINE < 300 (300ng/ml); URINE METHADONE < 300 (300ng/ml); URINE OPIATES < 300 (300ng/ml)
[2019-10-22 18:29] LABS: URINE PHENCYCLIDINE < 25 (25ng/ml)
[2019-10-22 18:39] LABS: BASO % 0.5 % (0.0-1.0); EOS # 0.2 10*3/uL (0.0-0.4); HEMATOCRIT 48.1 % (37.0-47.0); LYMPH # 2.4 10*3/uL (1.3-4.4); MEAN CELL VOLUME 88.9 fl (81.0-99.0); MEAN CORPUSCULAR HGB CONC 30.4 g/dl (33.0-37.0); MEAN PLATELET VOLUME 12.6 fl (9.6-12.3); MONO # 0.6 10*3/uL (0.1-1.0); MONO % 7.2 % (3.0-9.0); NEUT % 60.9 % (47.0-73.0); PLATELET COUNT AUTOMATED 152 10*3/uL (130-400); RED BLOOD COUNT 5.41 10*6/uL (4.10-5.10); RED CELL DISTRI WIDTH 15.6 % (0-14.5); WHITE BLOOD COUNT 8.2 10*3/uL (4.8-10.8)
[2019-10-22 18:51] LABS: ACT PARTIAL THROMBO TIME 24.8 SECONDS (20.0-32.1); INTERNATIONAL NORM RATIO 1.1 (2.0-3.5)
[2019-10-22 18:55] LABS: ALBUMIN 3.6 gm/dl (3.1-4.5); ALKALINE PHOSPHATASE 108 U/L (45-117); BUN 8 mg/dl (7-24); CHLORIDE 111 mmol/L (98-107); CREATININE 0.48 mg/dL (0.55-1.02); LIPASE 80 U/L (73-393); POTASSIUM 3.9 mmol/L (3.5-5.1); SGOT/AST 206 IU/L (3-35); SGPT/ALT 195 U/L (12-78); SODIUM 141 mmol/L (136-145); TOTAL PROTEIN 7.6 gm/dL (6.4-8.2)
[2019-10-22 18:58] LABS: ETHYL ALCOHOL < 3.0 mg/dl (<3); TROPONIN I < 0.015 ng/ml (<0.045)
[2019-10-22 19:36] VITALS: BP 119/68
[2019-10-22 22:30] VITALS: BP 106/64
[2019-10-22 23:38] VITALS: BP 106/64
[2019-10-23 06:32] LABS: THYROID STIM HORMONE (HS) 0.766 uIU/ml (0.358-4.75)
[2019-10-23 07:38] VITALS: BP 125/67
[2019-10-23 19:43] VITALS: BP 115/69
[2019-10-24 08:00] VITALS: BP 117/72
[2019-10-24] MEDS ORDERED: ROZEREM8 MG PO (09:20)
[2019-10-24] MEDS ORDERED: ATARAX,VISTARIL50 MG PO (09:20)
[2019-10-24] MEDS ORDERED: MIRTAZAPINE15 M2 PO (09:20)
[2019-10-24] MEDS ORDERED: GLUCOPHAGE1000 MG PO (13:09)
[2019-10-28 13:08] LABS: NEURONTIN (GABAPENTIN) 4.4 ug/mL (4.0-16.0)
== END 2019-10-24 13:57 | DRG 751 ==
LOC: ED 17:29 → 3N 21:44
PROVIDERS: Emergency Medicine; ADMIT Psychiatry & Neurology Psychiatry
DX: F33.2 Major depressive disorder, recurrent severe without psychotic features (principal); R45.851 Suicidal ideations; M54.12 Radiculopathy, cervical region; E87.8 Other disorders of electrolyte and fluid balance, not elsewhere classified; E11.65 Type 2 diabetes mellitus with hyperglycemia; R74.0 Nonspecific elevation of levels of transaminase and lactic acid dehydrogenase [LDH]; F17.210 Nicotine dependence, cigarettes, uncomplicated; B18.2 Chronic viral hepatitis C; G43.909 Migraine, unspecified, not intractable, without status migrainosus; K21.9 Gastro-esophageal reflux disease without esophagitis; G89.4 Chronic pain syndrome; I10 Essential (primary) hypertension; J43.9 Emphysema, unspecified; F41.9 Anxiety disorder, unspecified; E11.42 Type 2 diabetes mellitus with diabetic polyneuropathy; E55.9 Vitamin D deficiency, unspecified; M54.31 Sciatica, right side; M54.32 Sciatica, left side; E66.3 Overweight; Z68.25 Body mass index [BMI] 25.0-25.9, adult; Z03.818 Encounter for observation for suspected exposure to other biological agents ruled out; Z90.710 Acquired absence of both cervix and uterus; Z82.49 Family history of ischemic heart disease and other diseases of the circulatory system; Z83.3 Family history of diabetes mellitus; Z79.899 Other long term (current) drug therapy; Z79.82 Long term (current) use of aspirin; Z79.4 Long term (current) use of insulin; Z86.73 Personal history of transient ischemic attack (TIA), and cerebral infarction without residual deficits

== ENCOUNTER 2019-11-08 11:51 | Observation (INO) | payer OTHER ==
[~2019-11-08] VITALS: Ht 162.5 cm; Wt 72.1 kg
[~2019-11-08 11:51] MED LIST changes: +ATARAX,VISTARIL50 MG PO; +GLUCOPHAGE1000 MG PO; +ROZEREM8 MG PO
[2019-11-08 11:56] VITALS: BP 124/71
[2019-11-08 12:25] LABS: BILIRUBIN NEGATIVE (NEGATIVE); CLARITY SL CLOUDY (CLEAR); COLOR YELLOW (YELLOW); GLUCOSE NEGATIVE (NEGATIVE); KETONE NEGATIVE (NEGATIVE); SPECIFIC GRAVITY 1.015 (1.005-1.030)
[2019-11-08 12:26] LABS: BACTERIA 2+; BLOOD TRACE-INTACT (NEGATIVE); LEUKO ESTERASE 1+ (NEGATIVE); MUCOUS 2+; NITRITE NEGATIVE (NEGATIVE); UROBILINOGEN 0.2 E.U./dl (0.2-1.0)
[2019-11-08 13:02] LABS: HEMATOCRIT 45.4 % (37.0-47.0); MEAN CELL VOLUME 84.4 fl (81.0-99.0); MEAN CORPUSCULAR HGB 26.4 pg (27.0-31.0); MEAN CORPUSCULAR HGB CONC 31.3 g/dl (33.0-37.0); PLATELET COUNT AUTOMATED 157 10*3/uL (130-400); RED BLOOD COUNT 5.38 10*6/uL (4.10-5.10); RED CELL DISTRI WIDTH 15.2 % (0-14.5); WHITE BLOOD COUNT 8.9 10*3/uL (4.8-10.8)
[2019-11-08 13:11] LABS: ACT PARTIAL THROMBO TIME 25.3 SECONDS (20.0-32.1); INTERNATIONAL NORM RATIO 1.1 (2.0-3.5)
[2019-11-08 13:18] LABS: ALBUMIN 3.4 gm/dl (3.1-4.5); ALKALINE PHOSPHATASE 131 U/L (45-117); BUN 10 mg/dl (7-24); CHLORIDE 106 mmol/L (98-107); CREATININE 0.54 mg/dL (0.55-1.02); LIPASE 96 U/L (73-393); POTASSIUM 3.6 mmol/L (3.5-5.1); SGOT/AST 166 IU/L (3-35); SGPT/ALT 154 U/L (12-78); SODIUM 138 mmol/L (136-145); TOTAL PROTEIN 7.5 gm/dL (6.4-8.2)
[2019-11-08 13:20] LABS: TROPONIN I < 0.015 ng/ml (<0.045)
[2019-11-08 13:27] LABS: BASOPHILS 1 % (0-1); PLATELET SUFFICIENCY NORMAL (NORMAL); TOTAL CELLS COUNTED 100 #CELLS
[2019-11-08 15:00] VITALS: BP 126/70
[2019-11-08 15:31] LABS: URINE AMPHETAMINES < 1000 (1000ng/ml); URINE BARBITURATES < 200 (200ng/ml); URINE BENZODIAZEPINES < 200 (200ng/ml); URINE CANNABINOIDS (THC) < 50 (50ng/ml); URINE COCAINE < 300 (300ng/ml); URINE METHADONE < 300 (300ng/ml); URINE OPIATES < 300 (300ng/ml)
[2019-11-08 15:35] LABS: URINE PHENCYCLIDINE < 25 (25ng/ml)
[2019-11-08 20:00] VITALS: BP 113/69
[2019-11-09] VITALS: BP 108/62
[2019-11-09 06:31] LABS: BASO % 0.1 % (0.0-1.0); EOS % 0.2 % (1.0-4.0); HEMATOCRIT 43.2 % (37.0-47.0); LYMPH # 1.6 10*3/uL (1.3-4.4); LYMPH % 18.3 % (27.0-41.0); MEAN CELL VOLUME 85.9 fl (81.0-99.0); MEAN CORPUSCULAR HGB 26.4 pg (27.0-31.0); MEAN CORPUSCULAR HGB CONC 30.8 g/dl (33.0-37.0); MEAN PLATELET VOLUME 13.1 fl (9.6-12.3); MONO # 0.5 10*3/uL (0.1-1.0); MONO % 6.4 % (3.0-9.0); NEUT # 6.3 10*3/uL (2.3-7.9); NEUT % 74.5 % (47.0-73.0); PLATELET COUNT AUTOMATED 132 10*3/uL (130-400); RED BLOOD COUNT 5.03 10*6/uL (4.10-5.10); RED CELL DISTRI WIDTH 15.1 % (0-14.5); WHITE BLOOD COUNT 8.5 10*3/uL (4.8-10.8)
[2019-11-09 06:52] LABS: ACT PARTIAL THROMBO TIME 23.9 SECONDS (20.0-32.1); INTERNATIONAL NORM RATIO 1.1 (2.0-3.5)
[2019-11-09 07:02] LABS: ALBUMIN 3.2 gm/dl (3.1-4.5); ALKALINE PHOSPHATASE 138 U/L (45-117); BUN 14 mg/dl (7-24); CHLORIDE 104 mmol/L (98-107); CHOLESTEROL 79 mg/dL (<200); CREATININE 0.57 mg/dL (0.55-1.02); HDL CHOLESTEROL 13 mg/dl (40-60); LDL CHOLESTEROL 45 mg/dL (9-159); POTASSIUM 4.2 mmol/L (3.5-5.1); SGOT/AST 105 IU/L (3-35); SGPT/ALT 124 U/L (12-78); SODIUM 136 mmol/L (136-145); TOTAL PROTEIN 7.1 gm/dL (6.4-8.2); TRIGLYCERIDES 105 mg/dl (<150); VLDL CHOLESTEROL 21 mg/dL (6-40)
[2019-11-09 07:08] LABS: THYROID STIM HORMONE (HS) 0.883 uIU/ml (0.358-4.75)
[2019-11-09 07:16] LABS: VITAMIN D, 25-HYDROXY 32.5 ng/mL (30-100)
[2019-11-09 08:00] VITALS: BP 129/73
[2019-11-09] MEDS ORDERED: METFORMIN XR500 MG PO (09:02)
== END 2019-11-09 09:09 | disposition home or self-care (01) ==
LOC: ED 11:51 → EDHOLD 14:25 → 5E 14:31
PROVIDERS: Emergency Medicine; Internal Medicine; ADMIT Internal Medicine
DX: N39.0 Urinary tract infection, site not specified (principal); R19.7 Diarrhea, unspecified; R74.0 Nonspecific elevation of levels of transaminase and lactic acid dehydrogenase [LDH]; E83.42 Hypomagnesemia; B19.20 Unspecified viral hepatitis C without hepatic coma; G43.909 Migraine, unspecified, not intractable, without status migrainosus; K21.9 Gastro-esophageal reflux disease without esophagitis; G89.4 Chronic pain syndrome; I10 Essential (primary) hypertension; J44.9 Chronic obstructive pulmonary disease, unspecified; F41.9 Anxiety disorder, unspecified; Z86.73 Personal history of transient ischemic attack (TIA), and cerebral infarction without residual deficits; E11.65 Type 2 diabetes mellitus with hyperglycemia; F17.210 Nicotine dependence, cigarettes, uncomplicated; R74.8 Abnormal levels of other serum enzymes

== ENCOUNTER → 2019-12-12 | Outpatient (CLI) | payer MEDICAID ==
[~2019-12-12] MED LIST changes: +METFORMIN XR500 MG PO
== END | disposition home or self-care (01) ==
LOC: RAD 11:02
DX: R06.02 Shortness of breath (principal)

== ENCOUNTER 2020-08-13 11:29 | Inpatient (IN) | payer MEDICAID ==
[~2020-08-13] VITALS: Ht 162.5 cm; Wt 75.1 kg
[2020-08-13 11:36] VITALS: BP 76/50
[2020-08-13 12:02] LABS: BASO % 0.6 % (0.0-1.0); EOS # 0.2 10*3/uL (0.0-0.4); EOS % 2.1 % (1.0-4.0); HEMATOCRIT 43.4 % (37.0-47.0); LYMPH # 1.9 10*3/uL (1.3-4.4); LYMPH % 25.5 % (27.0-41.0); MEAN CELL VOLUME 93.9 fl (81.0-99.0); MEAN CORPUSCULAR HGB 28.8 pg (27.0-31.0); MEAN CORPUSCULAR HGB CONC 30.6 g/dl (33.0-37.0); MEAN PLATELET VOLUME 12.5 fl (9.6-12.3); MONO # 0.6 10*3/uL (0.1-1.0); MONO % 8.3 % (3.0-9.0); NEUT # 4.6 10*3/uL (2.3-7.9); NEUT % 63.1 % (47.0-73.0); PLATELET COUNT AUTOMATED 157 10*3/uL (130-400); RED BLOOD COUNT 4.62 10*6/uL (4.10-5.10); RED CELL DISTRI WIDTH 12.7 % (0-14.5); WHITE BLOOD COUNT 7.3 10*3/uL (4.8-10.8)
[2020-08-13 12:13] LABS: ACT PARTIAL THROMBO TIME 26.5 SECONDS (20.0-32.1); INTERNATIONAL NORM RATIO 1.1 (2.0-3.5)
[2020-08-13 12:27] LABS: ALBUMIN 2.9 gm/dl (3.1-4.5); ALKALINE PHOSPHATASE 98 U/L (45-117); BUN 17 mg/dl (7-24); CHLORIDE 106 mmol/L (98-107); CREATININE 0.79 mg/dL (0.55-1.02); POTASSIUM 3.8 mmol/L (3.5-5.1); SGOT/AST 117 IU/L (3-35); SGPT/ALT 101 U/L (12-78); SODIUM 141 mmol/L (136-145); TOTAL PROTEIN 7.6 gm/dL (6.4-8.2)
[2020-08-13 12:30] LABS: TROPONIN I < 0.015 ng/ml (<0.045)
[2020-08-13 13:05] VITALS: BP 101/62
[2020-08-13 14:50] VITALS: BP 94/52
[2020-08-13 16:00] VITALS: BP 98/66
[2020-08-13] MEDS ORDERED: NEURONTIN100 MG PO (17:01)
[2020-08-13] MEDS ORDERED: Ipratropium Brom3 ML INH (17:02)
[2020-08-13] MEDS ORDERED: CHLORTHALIDONE25 MG PO (17:09)
[2020-08-13] MEDS ORDERED: ESCITALOPRAM OX20 MG PO (17:10)
[2020-08-13] MEDS ORDERED: DICYCLOMINE HCL20 MG PO (17:10)
[2020-08-13] MEDS ORDERED: FLOVENT HFA12 G1 INH (17:11)
[2020-08-13] MEDS ORDERED: LISINOPRIL2.5 MG PO (17:12)
[2020-08-13] MEDS ORDERED: AMARYL4 MG PO (17:12)
[2020-08-13] MEDS ORDERED: LORAZEPAM0.5 MG PO (17:13)
[2020-08-13] MEDS ORDERED: CLARITIN10 MG PO (17:13)
[2020-08-13] MEDS ORDERED: METFORMIN HCL500 M2 PO (17:14)
[2020-08-13] MEDS ORDERED: MIRTAZAPINE15 M1 PO (17:14)
[2020-08-13] MEDS ORDERED: OMEPRAZOLE20 M2 PO (17:15)
[2020-08-13] MEDS ORDERED: PROPRANOLOL ER80 MG PO (17:16)
[2020-08-13] MEDS ORDERED: SEREVENT DISKU50 MCG INH (17:16)
[2020-08-13] MEDS ORDERED: TRAMADOL HCL50 MG PO (17:17)
[2020-08-13] MEDS ORDERED: VITAMIN B COMP1 EAC2 PO (17:18)
[2020-08-13] MEDS ORDERED: VITAMIN D325 MCG PO (17:18)
[2020-08-13 20:00] VITALS: BP 93/62
[2020-08-13 23:49] VITALS: BP 80/54
[2020-08-14 04:00] VITALS: BP 90/42
[2020-08-14 06:05] LABS: ALBUMIN 2.6 gm/dl (3.1-4.5); ALKALINE PHOSPHATASE 83 U/L (45-117); BUN 20 mg/dl (7-24); CHLORIDE 105 mmol/L (98-107); CREATININE 0.54 mg/dL (0.55-1.02); LDH 138 U/L (84-246); POTASSIUM 4.3 mmol/L (3.5-5.1); SGOT/AST 95 IU/L (3-35); SGPT/ALT 87 U/L (12-78); SODIUM 137 mmol/L (136-145); TOTAL PROTEIN 6.8 gm/dL (6.4-8.2)
[2020-08-14 06:27] LABS: BASO % 0.1 % (0.0-1.0); HEMATOCRIT 40.7 % (37.0-47.0); LYMPH # 1.1 10*3/uL (1.3-4.4); LYMPH % 15.3 % (27.0-41.0); MEAN CELL VOLUME 94.9 fl (81.0-99.0); MEAN CORPUSCULAR HGB 28.4 pg (27.0-31.0); MEAN PLATELET VOLUME 13.4 fl (9.6-12.3); MONO # 0.2 10*3/uL (0.1-1.0); MONO % 3.3 % (3.0-9.0); NEUT # 5.8 10*3/uL (2.3-7.9); PLATELET COUNT AUTOMATED 125 10*3/uL (130-400); RED BLOOD COUNT 4.29 10*6/uL (4.10-5.10); RED CELL DISTRI WIDTH 12.5 % (0-14.5); WHITE BLOOD COUNT 7.2 10*3/uL (4.8-10.8)
[2020-08-14 08:30] VITALS: BP 110/70
[2020-08-14 12:00] VITALS: BP 105/69
[2020-08-14] MEDS ORDERED: TYLENOL325 M2 PO (15:49)
[2020-08-14] MEDS ORDERED: MOBIC15 MG PO (15:50)
[2020-08-14] MEDS ORDERED: LOPERAMIDE HCL2 MG PO (15:50)
[2020-08-14] MEDS ORDERED: ONDANSETRON ODT8 MG PO (15:51)
[2020-08-14] MEDS ORDERED: PROCTO-MED HC28 GM T (15:52)
[2020-08-14] MEDS ORDERED: SPIRIVA18 MCG PO (15:52)
[2020-08-14] MEDS ORDERED: SUMATRIPTA6 MG/0.53 SQ (15:53)
[2020-08-14 16:00] VITALS: BP 106/47
[2020-08-14 20:00] VITALS: BP 100/48
[2020-08-15] VITALS: BP 92/47
[2020-08-15 05:06] LABS: HEP B CORE AB, IGM Negative (Negative); HEPATITIS B SURFACE AG Negative (Negative)
[2020-08-15 08:00] VITALS: BP 98/45
[2020-08-15 12:00] VITALS: BP 120/60
[2020-08-15 16:00] VITALS: BP 124/64
[2020-08-15] MEDS ORDERED: AUGMENTIN 875-875 MG PO (16:00)
[2020-08-15] MEDS ORDERED: MEDROL DOSEPAK4 MG PO (16:00)
[2020-08-17 10:58] LABS: HEPATITIS C VIRUS ANTIBODY >11.0 s/co (0.0-0.9)
== END 2020-08-15 16:05 | DRG 140 ==
LOC: ED 11:29 → 4E 14:13 → EDHOLD 14:13 → 4E 14:54
PROVIDERS: Emergency Medicine; ADMIT Internal Medicine; ATTEND Internal Medicine
DX: J44.1 Chronic obstructive pulmonary disease with (acute) exacerbation (principal); G89.29 Other chronic pain; M54.5 Low back pain; E11.9 Type 2 diabetes mellitus without complications; Z20.822 Contact with and (suspected) exposure to COVID-19; F41.1 Generalized anxiety disorder; I10 Essential (primary) hypertension; E44.0 Moderate protein-calorie malnutrition; G43.909 Migraine, unspecified, not intractable, without status migrainosus; B19.20 Unspecified viral hepatitis C without hepatic coma; J96.10 Chronic respiratory failure, unspecified whether with hypoxia or hypercapnia; Z90.710 Acquired absence of both cervix and uterus; Z87.891 Personal history of nicotine dependence; Z82.49 Family history of ischemic heart disease and other diseases of the circulatory system; Z83.3 Family history of diabetes mellitus; Z80.8 Family history of malignant neoplasm of other organs or systems; Z82.5 Family history of asthma and other chronic lower respiratory diseases; Z83.6 Family history of other diseases of the respiratory system; Z68.28 Body mass index [BMI] 28.0-28.9, adult

== ENCOUNTER 2020-08-16 06:32 | Emergency (ER) | payer MEDICAID ==
[~2020-08-16] VITALS: Ht 162.5 cm; Wt 80.9 kg
[~2020-08-16 06:32] MED LIST changes: +AMARYL4 MG PO; +AUGMENTIN 875-875 MG PO; +CHLORTHALIDONE25 MG PO; +CLARITIN10 MG PO; +DICYCLOMINE HCL20 MG PO; +ESCITALOPRAM OX20 MG PO; +FLOVENT HFA12 G1 INH; +LOPERAMIDE HCL2 MG PO; +LORAZEPAM0.5 MG PO; +METFORMIN HCL500 M2 PO; +MIRTAZAPINE15 M1 PO; +MOBIC15 MG PO; +OMEPRAZOLE20 M2 PO; +ONDANSETRON ODT8 MG PO; +PROCTO-MED HC28 GM T; +PROPRANOLOL ER80 MG PO; +SEREVENT DISKU50 MCG INH; +SPIRIVA18 MCG PO; +SUMATRIPTA6 MG/0.53 SQ; +TRAMADOL HCL50 MG PO; +TYLENOL325 M2 PO; +VITAMIN B COMP1 EAC2 PO; +VITAMIN D325 MCG PO
[2020-08-16 07:08] LABS: BASO % 0.3 % (0.0-1.0); EOS % 0.3 % (1.0-4.0); HEMATOCRIT 39.8 % (37.0-47.0); LYMPH # 2.1 10*3/uL (1.3-4.4); MEAN CELL VOLUME 97.3 fl (81.0-99.0); MEAN CORPUSCULAR HGB 29.1 pg (27.0-31.0); MEAN CORPUSCULAR HGB CONC 29.9 g/dl (33.0-37.0); MEAN PLATELET VOLUME 12.1 fl (9.6-12.3); MONO # 0.6 10*3/uL (0.1-1.0); NEUT # 4.5 10*3/uL (2.3-7.9); NEUT % 61.7 % (47.0-73.0); PLATELET COUNT AUTOMATED 121 10*3/uL (130-400); RED BLOOD COUNT 4.09 10*6/uL (4.10-5.10); RED CELL DISTRI WIDTH 12.8 % (0-14.5); WHITE BLOOD COUNT 7.3 10*3/uL (4.8-10.8)
[2020-08-16 07:23] LABS: ALBUMIN 2.7 gm/dl (3.1-4.5); ALKALINE PHOSPHATASE 86 U/L (45-117); BUN 19 mg/dl (7-24); CHLORIDE 107 mmol/L (98-107); CREATININE 0.61 mg/dL (0.55-1.02); POTASSIUM 3.8 mmol/L (3.5-5.1); SGOT/AST 81 IU/L (3-35); SGPT/ALT 84 U/L (12-78); SODIUM 142 mmol/L (136-145); TOTAL PROTEIN 6.8 gm/dL (6.4-8.2); TROPONIN I < 0.015 ng/ml (<0.045)
== END 2020-08-16 12:54 | disposition home or self-care (01) ==
LOC: ED 06:32
PROVIDERS: Emergency Medicine
DX: G43.909 Migraine, unspecified, not intractable, without status migrainosus (principal); R05 Cough; R06.02 Shortness of breath; J44.9 Chronic obstructive pulmonary disease, unspecified; K21.9 Gastro-esophageal reflux disease without esophagitis; I10 Essential (primary) hypertension; E11.40 Type 2 diabetes mellitus with diabetic neuropathy, unspecified; F41.9 Anxiety disorder, unspecified; Z79.2 Long term (current) use of antibiotics; Z79.899 Other long term (current) drug therapy; Z86.73 Personal history of transient ischemic attack (TIA), and cerebral infarction without residual deficits; Z90.711 Acquired absence of uterus with remaining cervical stump; Z98.890 Other specified postprocedural states; Z87.891 Personal history of nicotine dependence

== ENCOUNTER → 2021-04-12 | Outpatient (CLI) | payer MEDICAID ==
[~2021-04-12] MED LIST changes: +DECADRON6 M1 PO
== END | disposition home or self-care (01) ==
LOC: MAMMO 03-31 09:00
PROVIDERS: ATTEND Internal Medicine
DX: Z12.31 Encounter for screening mammogram for malignant neoplasm of breast (principal)

== ENCOUNTER → 2021-07-08 | Outpatient (CLI) | payer MEDICAID | END | disposition home or self-care (01) | LOC: MAMMO 13:00 | PROVIDERS: ATTEND Internal Medicine | DX: N60.01 Solitary cyst of right breast (principal); N63.10 Unspecified lump in the right breast, unspecified quadrant ==

== ENCOUNTER → 2021-09-27 | Outpatient (CLI) | payer MEDICAID ==
[~2021-09-27] MED LIST changes: +ATIVAN1 MG PO; +INDERAL LA60 M1 PO; -MIRTAZAPINE15 M1 PO; +MIRTAZAPINE30 M2 PO; -PROPRANOLOL ER80 MG PO
== END | disposition home or self-care (01) ==
LOC: CT 09-07 13:00
PROVIDERS: ATTEND Internal Medicine
DX: K76.0 Fatty (change of) liver, not elsewhere classified (principal); K57.30 Diverticulosis of large intestine without perforation or abscess without bleeding

== ENCOUNTER 2021-11-10 18:16 | Emergency (ER) | payer MEDICAID ==
[2021-11-10 20:09] LABS: BASO % 0.7 % (0.0-1.0); EOS # 0.2 10*3/uL (0.0-0.4); EOS % 3.6 % (1.0-4.0); LYMPH # 1.8 10*3/uL (1.3-4.4); MEAN CELL VOLUME 93.4 fl (81.0-99.0); MEAN CORPUSCULAR HGB 27.5 pg (27.0-31.0); MEAN CORPUSCULAR HGB CONC 29.5 g/dl (33.0-37.0); MEAN PLATELET VOLUME 12.2 fl (9.6-12.3); MONO # 0.6 10*3/uL (0.1-1.0); MONO % 10.2 % (3.0-9.0); NEUT % 53.1 % (47.0-73.0); PLATELET COUNT AUTOMATED 102 10*3/uL (130-400); RED BLOOD COUNT 4.07 10*6/uL (4.10-5.10); RED CELL DISTRI WIDTH 13.2 % (0-14.5); WHITE BLOOD COUNT 5.6 10*3/uL (4.8-10.8)
[2021-11-10 20:23] LABS: ALKALINE PHOSPHATASE 124 U/L (45-117); BUN 11 mg/dl (7-24); CHLORIDE 100 mmol/L (98-107); CREATININE 0.62 mg/dL (0.55-1.02); POTASSIUM 3.2 mmol/L (3.5-5.1); SGOT/AST 90 IU/L (3-35); SGPT/ALT 67 U/L (12-78); SODIUM 136 mmol/L (136-145); TOTAL PROTEIN 7.1 gm/dL (6.4-8.2)
[2021-11-10 20:24] LABS: ACETAMINOPHEN (TYLENOL) < 5.0 ug/ml (10-30); ETHYL ALCOHOL < 3.0 mg/dl (<3)
[2021-11-10 21:01] LABS: BILIRUBIN Negative (Negative); BLOOD Negative (Negative); CLARITY Clear (Clear); COLOR Yellow (Yellow); GLUCOSE Negative (Negative); KETONE Negative (Negative); LEUKO ESTERASE 3+ (Negative); NITRITE Negative (Negative); SPECIFIC GRAVITY 1.015 (1.001-1.030)
[2021-11-10 21:07] LABS: BACTERIA 4+; HYALINE CAST 0-2; WBC 21-30 wbc/hpf (0-5)
[2021-11-10 21:10] LABS: URINE AMPHETAMINES < 1000 (1000ng/ml); URINE BARBITURATES < 200 (200ng/ml); URINE BENZODIAZEPINES < 200 (200ng/ml); URINE CANNABINOIDS (THC) < 50 (50ng/ml); URINE COCAINE < 300 (300ng/ml); URINE METHADONE < 300 (300ng/ml); URINE OPIATES < 300 (300ng/ml)
[2021-11-10 21:11] LABS: URINE PHENCYCLIDINE < 25 (25ng/ml)
== END 2021-11-11 02:25 | disposition home or self-care (01) ==
LOC: ED 18:16
PROVIDERS: Emergency Medicine
DX: R41.0 Disorientation, unspecified (principal); J44.9 Chronic obstructive pulmonary disease, unspecified; E11.9 Type 2 diabetes mellitus without complications; K21.9 Gastro-esophageal reflux disease without esophagitis; I10 Essential (primary) hypertension; G43.909 Migraine, unspecified, not intractable, without status migrainosus; F17.210 Nicotine dependence, cigarettes, uncomplicated; Z79.899 Other long term (current) drug therapy; Z90.710 Acquired absence of both cervix and uterus

== ENCOUNTER → 2021-11-12 | Outpatient (CLI) | payer MEDICAID ==
[~2021-11-12] MED LIST changes: +CEFUROXIME AXE250 MG PO; +DOXYCYCLINE MO100 MG PO; +K-TAB20 MEQ PO
[2021-11-12 15:32] LABS: ABG BASE EXCESS 6.1 mmol/L (-2.0-2.0); ARTERIAL BLOOD GAS PH 7.355 (7.35-7.45); ARTERIAL BLOOD GAS PO2 58.7 (80-90)
== END | disposition home or self-care (01) ==
LOC: LAB 15:05
PROVIDERS: ATTEND Internal Medicine
DX: J44.9 Chronic obstructive pulmonary disease, unspecified (principal); R41.0 Disorientation, unspecified

== ENCOUNTER 2021-11-14 14:09 | Inpatient (IN) | payer MEDICAID ==
[~2021-11-14] VITALS: Ht 162.6 cm; Wt 75.7 kg
[~2021-11-14 14:09] MED LIST changes: -CEFUROXIME AXE250 MG PO; -DOXYCYCLINE MO100 MG PO; -K-TAB20 MEQ PO
[2021-11-14 15:11] LABS: BASO % 0.3 % (0.0-1.0); EOS # 0.2 10*3/uL (0.0-0.4); EOS % 1.4 % (1.0-4.0); HEMATOCRIT 38.9 % (37.0-47.0); LYMPH # 1.8 10*3/uL (1.3-4.4); LYMPH % 12.7 % (27.0-41.0); MEAN CELL VOLUME 96.8 fl (81.0-99.0); MEAN CORPUSCULAR HGB 27.6 pg (27.0-31.0); MEAN CORPUSCULAR HGB CONC 28.5 g/dl (33.0-37.0); MEAN PLATELET VOLUME 12.5 fl (9.6-12.3); MONO # 1.3 10*3/uL (0.1-1.0); MONO % 8.8 % (3.0-9.0); NEUT # 11.1 10*3/uL (2.3-7.9); NEUT % 76.2 % (47.0-73.0); PLATELET COUNT AUTOMATED 115 10*3/uL (130-400); RED BLOOD COUNT 4.02 10*6/uL (4.10-5.10); RED CELL DISTRI WIDTH 13.6 % (0-14.5); WHITE BLOOD COUNT 14.5 10*3/uL (4.8-10.8)
[2021-11-14 15:28] VITALS: BP 78/32
[2021-11-14 15:30] LABS: ALKALINE PHOSPHATASE 135 U/L (45-117); BUN 19 mg/dl (7-24); CHLORIDE 104 mmol/L (98-107); CREATININE 1.12 mg/dL (0.55-1.02); POTASSIUM 3.3 mmol/L (3.5-5.1); SGOT/AST 70 IU/L (3-35); SGPT/ALT 64 U/L (12-78); SODIUM 138 mmol/L (136-145); TOTAL PROTEIN 7.1 gm/dL (6.4-8.2)
[2021-11-14 15:31] LABS: ETHYL ALCOHOL < 3.0 mg/dl (<3)
[2021-11-14 15:36] LABS: ABG BASE EXCESS -0.6 mmol/L (-2.0-2.0); ARTERIAL BLOOD GAS PH 7.239 (7.35-7.45); ARTERIAL BLOOD GAS PO2 79.7 (80-90)
[2021-11-14 16:28] LABS: BILIRUBIN 1+ (Negative); BLOOD 2+ (Negative); CLARITY Turbid (Clear); COLOR Dark Yellow (Yellow); GLUCOSE Negative (Negative); KETONE 1+ (Negative); LEUKO ESTERASE 3+ (Negative); NITRITE Negative (Negative); PH 5.5 (4.5-8.0); SPECIFIC GRAVITY 1.025 (1.001-1.030)
[2021-11-14 16:36] LABS: URINE AMPHETAMINES < 1000 (1000ng/ml); URINE BARBITURATES < 200 (200ng/ml); URINE BENZODIAZEPINES < 200 (200ng/ml); URINE CANNABINOIDS (THC) < 50 (50ng/ml); URINE COCAINE < 300 (300ng/ml); URINE METHADONE < 300 (300ng/ml); URINE OPIATES < 300 (300ng/ml)
[2021-11-14 16:41] LABS: BACTERIA 2+; WBC TNTC wbc/hpf (0-5)
[2021-11-14 16:48] LABS: URINE PHENCYCLIDINE < 25 (25ng/ml)
[2021-11-14 18:09] VITALS: BP 80/53
[2021-11-14 19:33] VITALS: BP 72/35
[2021-11-14 20:30] VITALS: BP 84/47
[2021-11-14 21:00] LABS: ARTERIAL BLOOD GAS PO2 83.4 (80-90)
[2021-11-14 21:04] LABS: ARTERIAL BLOOD GAS PH 7.148 (7.35-7.45)
[2021-11-14 23:37] LABS: ABG BASE EXCESS 0.1 mmol/L (-2.0-2.0); ARTERIAL BLOOD GAS PH 7.205 (7.35-7.45); ARTERIAL BLOOD GAS PO2 83.2 (80-90)
[2021-11-15] VITALS (7 sets, daily range): BP systolic 83–134; BP diastolic 39–81
[2021-11-15 04:26] LABS: BASO % 0.3 % (0.0-1.0); EOS # 0.2 10*3/uL (0.0-0.4); HEMATOCRIT 34.9 % (37.0-47.0); LYMPH # 1.2 10*3/uL (1.3-4.4); LYMPH % 14.5 % (27.0-41.0); MEAN CELL VOLUME 96.1 fl (81.0-99.0); MEAN CORPUSCULAR HGB 27.5 pg (27.0-31.0); MEAN CORPUSCULAR HGB CONC 28.7 g/dl (33.0-37.0); MEAN PLATELET VOLUME 12.9 fl (9.6-12.3); MONO % 12.3 % (3.0-9.0); NEUT # 5.6 10*3/uL (2.3-7.9); NEUT % 70.4 % (47.0-73.0); PLATELET COUNT AUTOMATED 86 10*3/uL (130-400); RED BLOOD COUNT 3.63 10*6/uL (4.10-5.10); WHITE BLOOD COUNT 7.9 10*3/uL (4.8-10.8)
[2021-11-15 04:43] LABS: BUN 19 mg/dl (7-24); CHLORIDE 108 mmol/L (98-107); POTASSIUM 3.8 mmol/L (3.5-5.1); SODIUM 140 mmol/L (136-145)
[2021-11-15 07:42] LABS: ABG BASE EXCESS -0.5 mmol/L (-2.0-2.0); ARTERIAL BLOOD GAS PH 7.337 (7.35-7.45)
[2021-11-16] VITALS (12 sets, daily range): BP systolic 116–152; BP diastolic 53–82
[2021-11-16 05:16] LABS: BUN 10 mg/dl (7-24); CHLORIDE 107 mmol/L (98-107); CREATININE 0.51 mg/dL (0.55-1.02); POTASSIUM 3.3 mmol/L (3.5-5.1); SODIUM 136 mmol/L (136-145)
[2021-11-16 06:11] LABS: BASO % 0.2 % (0.0-1.0); LYMPH # 0.9 10*3/uL (1.3-4.4); LYMPH % 20.6 % (27.0-41.0); MEAN CORPUSCULAR HGB 27.6 pg (27.0-31.0); MEAN CORPUSCULAR HGB CONC 29.7 g/dl (33.0-37.0); MEAN PLATELET VOLUME 13.7 fl (9.6-12.3); MONO # 0.5 10*3/uL (0.1-1.0); MONO % 10.9 % (3.0-9.0); NEUT # 2.8 10*3/uL (2.3-7.9); NEUT % 67.1 % (47.0-73.0); PLATELET COUNT AUTOMATED 80 10*3/uL (130-400); RED BLOOD COUNT 3.88 10*6/uL (4.10-5.10); RED CELL DISTRI WIDTH 13.7 % (0-14.5); WHITE BLOOD COUNT 4.1 10*3/uL (4.8-10.8)
[2021-11-16 07:13] LABS: MEAN CELL VOLUME 92.8 fl (81.0-99.0)
[2021-11-17] VITALS (8 sets, daily range): BP systolic 121–145; BP diastolic 50–90
[2021-11-17 05:15] LABS: BUN 6 mg/dl (7-24); CHLORIDE 106 mmol/L (98-107); CREATININE 0.48 mg/dL (0.55-1.02); SODIUM 140 mmol/L (136-145)
[2021-11-17 06:25] LABS: BASO % 0.3 % (0.0-1.0); HEMATOCRIT 34.2 % (37.0-47.0); LYMPH # 0.8 10*3/uL (1.3-4.4); LYMPH % 20.1 % (27.0-41.0); MEAN CORPUSCULAR HGB 27.7 pg (27.0-31.0); MEAN PLATELET VOLUME 12.1 fl (9.6-12.3); MONO # 0.4 10*3/uL (0.1-1.0); MONO % 11.2 % (3.0-9.0); NEUT # 2.6 10*3/uL (2.3-7.9); NEUT % 66.9 % (47.0-73.0); RED BLOOD COUNT 3.82 10*6/uL (4.10-5.10); RED CELL DISTRI WIDTH 13.6 % (0-14.5); WHITE BLOOD COUNT 3.9 10*3/uL (4.8-10.8)
[2021-11-17 06:47] LABS: MEAN CELL VOLUME 89.5 fl (81.0-99.0)
[2021-11-17 06:48] LABS: PLATELET COUNT AUTOMATED 113 10*3/uL (130-400)
[2021-11-18] VITALS: BP 150/67
[2021-11-18 04:00] VITALS: BP 142/53
[2021-11-18 05:17] LABS: ALKALINE PHOSPHATASE 85 U/L (45-117); BUN 5 mg/dl (7-24); CHLORIDE 108 mmol/L (98-107); CREATININE 0.39 mg/dL (0.55-1.02); SGOT/AST 52 IU/L (3-35); SGPT/ALT 41 U/L (12-78); SODIUM 142 mmol/L (136-145); TOTAL PROTEIN 6.6 gm/dL (6.4-8.2)
[2021-11-18 06:07] LABS: BASO % 0.4 % (0.0-1.0); EOS # 0.1 10*3/uL (0.0-0.4); EOS % 1.1 % (1.0-4.0); LYMPH # 1.2 10*3/uL (1.3-4.4); LYMPH % 20.2 % (27.0-41.0); MEAN CELL VOLUME 89.4 fl (81.0-99.0); MEAN CORPUSCULAR HGB 27.3 pg (27.0-31.0); MEAN CORPUSCULAR HGB CONC 30.5 g/dl (33.0-37.0); MEAN PLATELET VOLUME 11.7 fl (9.6-12.3); MONO # 0.6 10*3/uL (0.1-1.0); MONO % 10.9 % (3.0-9.0); NEUT # 3.8 10*3/uL (2.3-7.9); NEUT % 66.9 % (47.0-73.0); RED BLOOD COUNT 4.14 10*6/uL (4.10-5.10); RED CELL DISTRI WIDTH 14.1 % (0-14.5); WHITE BLOOD COUNT 5.7 10*3/uL (4.8-10.8)
[2021-11-18 07:29] LABS: PLATELET COUNT AUTOMATED 161 10*3/uL (130-400)
[2021-11-18 08:00] VITALS: BP 119/47
[2021-11-18 12:00] VITALS: BP 117/59
[2021-11-18 16:00] VITALS: BP 134/53
[2021-11-18 20:00] VITALS: BP 130/65
[2021-11-19] VITALS: BP 133/55
[2021-11-19 06:17] LABS: ALKALINE PHOSPHATASE 83 U/L (45-117); BUN 7 mg/dl (7-24); CHLORIDE 107 mmol/L (98-107); CREATININE 0.51 mg/dL (0.55-1.02); POTASSIUM 3.4 mmol/L (3.5-5.1); SGOT/AST 49 IU/L (3-35); SGPT/ALT 41 U/L (12-78); SODIUM 140 mmol/L (136-145); TOTAL PROTEIN 6.4 gm/dL (6.4-8.2)
[2021-11-19] MEDS ORDERED: DOXYCYCLINE MO100 MG PO (06:21)
[2021-11-19] MEDS ORDERED: CEFUROXIME AXE250 MG PO (06:21)
[2021-11-19] MEDS ORDERED: LACTULOSE20 GM/30 M PO (06:21)
[2021-11-19 06:24] LABS: BASO % 0.8 % (0.0-1.0); EOS # 0.1 10*3/uL (0.0-0.4); EOS % 1.5 % (1.0-4.0); HEMATOCRIT 36.6 % (37.0-47.0); LYMPH # 1.3 10*3/uL (1.3-4.4); LYMPH % 24.6 % (27.0-41.0); MEAN CORPUSCULAR HGB 28.1 pg (27.0-31.0); MEAN CORPUSCULAR HGB CONC 30.1 g/dl (33.0-37.0); MEAN PLATELET VOLUME 10.7 fl (9.6-12.3); MONO # 0.5 10*3/uL (0.1-1.0); MONO % 9.2 % (3.0-9.0); NEUT # 3.3 10*3/uL (2.3-7.9); NEUT % 62.8 % (47.0-73.0); PLATELET COUNT AUTOMATED 157 10*3/uL (130-400); RED BLOOD COUNT 3.91 10*6/uL (4.10-5.10); RED CELL DISTRI WIDTH 14.2 % (0-14.5); WHITE BLOOD COUNT 5.3 10*3/uL (4.8-10.8)
[2021-11-19] MEDS ORDERED: K-TAB20 MEQ PO (06:38)
[2021-11-19 07:03] LABS: MEAN CELL VOLUME 93.6 fl (81.0-99.0)
== END 2021-11-19 08:42 | disposition home health service (06) | DRG 137 ==
LOC: ED 14:09 → EDHOLD 18:23 → ICCU 18:23
PROVIDERS: Internal Medicine; Internal Medicine Critical Care Medicine; ADMIT Internal Medicine; ATTEND Internal Medicine
PROC: 5A09357 Assistance with Respiratory Ventilation, Less than 24 Consecutive Hours, Continuous Positive Airway Pressure (ICD-10-PCS; principal; 2021-11-14)
PROC: 5A09357 Assistance with Respiratory Ventilation, Less than 24 Consecutive Hours, Continuous Positive Airway Pressure (ICD-10-PCS; 2021-11-15)
DX: J69.0 Pneumonitis due to inhalation of food and vomit (principal); N39.0 Urinary tract infection, site not specified; N17.0 Acute kidney failure with tubular necrosis; K72.90 Hepatic failure, unspecified without coma; F32.9 Major depressive disorder, single episode, unspecified; F41.1 Generalized anxiety disorder; I10 Essential (primary) hypertension; E72.20 Disorder of urea cycle metabolism, unspecified; G89.29 Other chronic pain; M54.50 Low back pain, unspecified; E43 Unspecified severe protein-calorie malnutrition; E87.6 Hypokalemia; D69.6 Thrombocytopenia, unspecified; S51.812A Laceration without foreign body of left forearm, initial encounter; B96.89 Other specified bacterial agents as the cause of diseases classified elsewhere; R62.7 Adult failure to thrive; K75.81 Nonalcoholic steatohepatitis (NASH); J96.21 Acute and chronic respiratory failure with hypoxia; J96.22 Acute and chronic respiratory failure with hypercapnia; D61.818 Other pancytopenia; G93.41 Metabolic encephalopathy; K74.60 Unspecified cirrhosis of liver; Z20.822 Contact with and (suspected) exposure to COVID-19; Z86.16 Personal history of COVID-19; Z90.710 Acquired absence of both cervix and uterus; X58.XXXA Exposure to other specified factors, initial encounter; Y93.89 Activity, other specified; Y92.89 Other specified places as the place of occurrence of the external cause; Y99.8 Other external cause status

== ENCOUNTER → 2021-12-07 | Outpatient (CLI) | payer MEDICAID ==
[~2021-12-07] MED LIST changes: +CEFUROXIME AXE250 MG PO; +DOXYCYCLINE MO100 MG PO; +K-TAB20 MEQ PO
== END | disposition home or self-care (01) ==
LOC: RAD/SH 10:00
PROVIDERS: ATTEND Internal Medicine
DX: K21.9 Gastro-esophageal reflux disease without esophagitis (principal); J69.0 Pneumonitis due to inhalation of food and vomit

== ENCOUNTER → 2022-02-25 | Outpatient (CLI) | payer MEDICAID | END | disposition home or self-care (01) | LOC: US 13:45 | PROVIDERS: ATTEND Internal Medicine | DX: E04.1 Nontoxic single thyroid nodule (principal); M54.2 Cervicalgia ==

== ENCOUNTER → 2022-09-21 | Outpatient (CLI) | payer MEDICARE, MEDICAID ==
[~2022-09-21] MED LIST changes: +ACETAMINOPHEN500 M4 PO; +ACETAZOLAMIDE250 MG PO; +ADV 500/50 INH; +ALDACTONE25 MG PO; +BUMETANIDE0.5 MG PO; +DICYCLOMINE HYD20 MG PO; +Duragesic 25 M25 MCG TD; +ENULOSE10 GM/151 PO; +ESCITALOPRAM OX10 MG PO; -ESCITALOPRAM OX20 MG PO; +GLIMEPIRIDE4 M1 PO; +GOOD NEIGHBOR L10 MG PO; +GOOD SENSE ASP325 MG PO; +LEADER ASPIRIN325 MG PO; +LIDOCAINE HCL5 ML T; +LORAZEPAM0.5 M1 PO; +MAPAP ARTHRITI650 MG PO; +METRONIDAZOLE500 M1 PO; +MILK OF MA400 MG/51 PO; +ONDANSETRON HYDR8 MG PO; +PROPRANOLOL HCL10 MG PO; +PROPRANOLOL HCL60 MG PO; +SILTUSSIN100 MG/52 PO; +THEREMS-M TABL1 EACH PO; +VANCOCIN250 M1 PO; +XIFAXAN550 MG PO; +[UNRECOGNIZED DRUG - OTHER]; +[UNRECOGNIZED DRUG - OTHER] PO
== END | disposition home or self-care (01) ==
LOC: MAMMO 12:53
PROVIDERS: ATTEND Internal Medicine
DX: N64.4 Mastodynia (principal); R92.2 Inconclusive mammogram

== ENCOUNTER 2022-09-30 20:17 | Emergency (ER) | payer MEDICARE, MEDICAID ==
[~2022-09-30] VITALS: Ht 175.2 cm; Wt 81.6 kg
[2022-09-30 21:09] LABS: BASO % 0.6 % (0.0-1.0); EOS # 0.1 10*3/uL (0.0-0.4); EOS % 1.7 % (1.0-4.0); LYMPH # 1.9 10*3/uL (1.3-4.4); LYMPH % 28.9 % (27.0-41.0); MEAN CELL VOLUME 100.5 fl (81.0-99.0); MEAN CORPUSCULAR HGB 28.2 pg (27.0-31.0); MEAN CORPUSCULAR HGB CONC 28.1 g/dl (33.0-37.0); MEAN PLATELET VOLUME 11.8 fl (9.6-12.3); MONO # 0.6 10*3/uL (0.1-1.0); MONO % 9.3 % (3.0-9.0); NEUT # 3.8 10*3/uL (2.3-7.9); NEUT % 59.2 % (47.0-73.0); PLATELET COUNT AUTOMATED 105 10*3/uL (130-400); RED BLOOD COUNT 4.18 10*6/uL (4.10-5.10); RED CELL DISTRI WIDTH 14.1 % (0-14.5); WHITE BLOOD COUNT 6.4 10*3/uL (4.8-10.8)
[2022-09-30 21:31] LABS: ALKALINE PHOSPHATASE 109 U/L (46-116); BUN 9 mg/dl (9-23); CHLORIDE 105 mmol/L (98-107); POTASSIUM 4.7 mmol/L (3.4-5.1); SGPT/ALT 34 U/L (10-49); TOTAL PROTEIN 7.3 gm/dL (6.0-8.0)
== END 2022-10-01 01:03 | disposition home or self-care (01) ==
LOC: ED 20:17
PROVIDERS: Emergency Medicine
DX: T40.2X1A Poisoning by other opioids, accidental (unintentional), initial encounter (principal); I10 Essential (primary) hypertension; J44.9 Chronic obstructive pulmonary disease, unspecified; E11.9 Type 2 diabetes mellitus without complications; N17.9 Acute kidney failure, unspecified; E87.6 Hypokalemia; E83.42 Hypomagnesemia; F41.9 Anxiety disorder, unspecified; K21.9 Gastro-esophageal reflux disease without esophagitis; Z86.16 Personal history of COVID-19; G43.909 Migraine, unspecified, not intractable, without status migrainosus; G62.9 Polyneuropathy, unspecified; Z90.710 Acquired absence of both cervix and uterus; Z98.890 Other specified postprocedural states; Z87.891 Personal history of nicotine dependence; Y92.89 Other specified places as the place of occurrence of the external cause

== ENCOUNTER → 2022-09-30 | Outpatient (CLI) | payer MEDICARE, MEDICAID | END | disposition home or self-care (01) | LOC: RAD 13:52 | PROVIDERS: ATTEND Internal Medicine | DX: T14.8XXA Other injury of unspecified body region, initial encounter (principal); M85.851 Other specified disorders of bone density and structure, right thigh; M85.852 Other specified disorders of bone density and structure, left thigh; X58.XXXA Exposure to other specified factors, initial encounter; Y93.89 Activity, other specified; Y92.89 Other specified places as the place of occurrence of the external cause; Y99.8 Other external cause status ==

== ENCOUNTER 2023-01-25 20:33 | Emergency (ER) | payer OTHER ==
[~2023-01-25] VITALS: Ht 160 cm; Wt 64.2 kg
== END 2023-01-25 21:45 ==
LOC: ED 20:33
DX: Z51.5 Encounter for palliative care (principal); Z90.710 Acquired absence of both cervix and uterus; Z98.890 Other specified postprocedural states; Z72.0 Tobacco use